=== PATIENT | male | born 1960 | race Caucasian/White ===

== ENCOUNTER 2019-08-23 18:25 | IRF | payer MEDICARE, SELFPAY ==
--- NOTE | 2019-08-23 18:53 | ADMGEN ---
This patient, Lam Merida, was admitted to [facility] Room 226-01. Patient/family oriented to hospital policies and general routines including ID bracelet, bed and alarms, visiting hours, pain management, procedures, bathroom and other care routines, personal items, smoking policy, room service/diet, and visiting hours. Valuables list has been completed. Information on how to activate the Rapid Response Team has been discussed. Patient/Family are encouraged to report perceived risks to care and to ask questions if they do not understand what they are told or what they should do.
[2019-08-23 20:00] VITALS: BMI 28.2
[2019-08-23 22:00] VITALS: BP 146/66; PULSE 77; RESP 18; TEMP 36.8; O2SAT 97
[2019-08-23 22:31] LABS: Glucose Point of Care 147 (65-105)
[2019-08-24 03:04] LABS: Glucose Point of Care 260 (65-105)
[2019-08-24 05:10] LABS: Basophils Percent Auto 0.5 % (0.2-1.2); Eosinophils Absolute Auto 0.1 K/mm3 (0-0.3); Hematocrit 31.2 % (42.0-52.0); Hemoglobin 10.5 g/dL (14.0-18.0); Immature Granulocyte Absolute 0.02 K/mm3 (0.00-0.031); Immature Granulocyte Percent A 0.5 % (0-0.5); Lymphocytes Absolute Auto 0.54 K/mm3 (0.9-3.2); Lymphocytes Percent Auto 12.3 % (18.3-44.2); Mean Corpuscular HGB Conc 33.7 g/dl (32-36); Mean Corpuscular Hemoglobin 29.8 pg (26-34); Mean Corpuscular Volume 88.6 fl (80-100); Mean Platelet Volume 10.2 fl (7.4-10.4); Monocytes Absolute Auto 0.3 K/mm3 (0.1-0.6); Monocytes Percent Auto 7.7 % (2.6-8.5); Neutrophils Absolute Auto 3.4 K/mm3 (1.3-6.7); Platelet Count Result 190 k/mm3 (150-375); Red Blood Count 3.52 M/mm3 (4.6-6.20); Red Cell Distribution Width 13.5 % (11.5-14.5); White Blood Count 4.4 K/mm3 (4.5-10.0)
[2019-08-24 05:26] LABS: Blood Urea Nitrogen 39 mg/dL (9-20); Calcium 8.5 mg/dL (8.4-10.2); Carbon Dioxide 27 mmol/L (22-30); Chloride 93 mmol/L (98-107); Estimated CRCL calculation 40 ml/min; Estimated Glomerular Filt Rate 37; Glucose 366 mg/dL (75-110); Potassium 4.3 mmol/L (3.4-5.0); Sodium 129 mmol/L (137-145)
[2019-08-24 06:00] VITALS: BP 107/49; PULSE 88; RESP 17; TEMP 36.6; O2SAT 97
[2019-08-24 06:49] LABS: Glucose Point of Care 393 (65-105)
[2019-08-24 07:17] LABS: Hemoglobin A1C 6.1 % (<5.7)
[2019-08-24] MEDS: INSULIN ASPART (*BKC) 100 UNITS/ML SUB-Q ×3 (07:50→18:01)
[2019-08-24] MEDS: INSULIN ASPART (*BKC) 100 UNITS/ML 10 UNITS SUB-Q ×3 (07:50→18:01)
[2019-08-24] MEDS: ATORVASTATIN 40 MG TABLET PO (07:51)
[2019-08-24] MEDS: ASPIRIN 81 MG CHEWABLE TABLET PO (07:51)
[2019-08-24] MEDS: GABAPENTIN 300 MG CAPSULE PO ×3 (07:52→17:55)
[2019-08-24] MEDS: THERAPEUTIC MULTIVITAMINS/MINERALS TAB (*BKC) 1 TABLET PO (07:52)
[2019-08-24] MEDS: LOSARTAN POTASSIUM 25 MG TABLET PO (07:52)
[2019-08-24] MEDS: FUROSEMIDE 20 MG TABLET PO (07:52)
[2019-08-24] MEDS: PRASUGREL HCL 10 MG TABLET PO (07:53)
[2019-08-24] MEDS: INSULIN GLARGINE (*BKC) 100 UNITS/ML 14 UNITS SUB-Q ×2 (07:57→17:59)
--- NOTE | 2019-08-24 11:42 | PCSTNOTE ---
Please refer to the Bedside Swallow Evaluation in the EMR.
--- NOTE | 2019-08-24 12:15 | WPDREHABHP ---
H&P: HPI History of Present Illness Chief complaint: spondylolisthesis lumbar region Narrative: Lam Merida is a 59 year old maleHISTORY OF PRESENT ILLNESS: The patient's primary rehab impairment category is neurological condition The etiologic diagnosis is spondylolisthesis of lumbar region I saw this patient [id number] on August 24, 2027 12 p.m. The patient is a 59-year-old right-handed white gentleman with a prior medical history of diabetes mellitus with significant neuropathy and L5-S1 spondylolisthesis along with lumbar radiculopathy of the lumbar region who presented to [facility] and July 18, 2019 for planned to phase spinal fusion with instrumentation. He underwent the phase 1 retroperitoneal anterior lumbar interbody fusion L4-5 and L5-S1 with diskectomy and spinal hardware implantation and July 18, [address] leung, neurosurgeon and with vascular surgeon. On July 20, 2019 he underwent a Face to segmental pedicle screw fixation from L4-S1 and posterior arthrodesis are with the patient's own harvested autograft from L4 through S1. He was transferred to ICU on July 21, 2019 due to increased oxygen requirement up to 5 liter per nasal cannula, hyperglycemia acute blood-loss anemia. Chest x-ray showed pulmonary edema. He received 2 units of packed RBCs for hemoglobin of 6.4, he required oxygen and BiPAP and endocrinology was consulted for hyperglycemia. The patient has an insulin pump but not enough supplies to lasted during his hospitalization so Endocrinology turned his pump off and switch him to basal bolus and changed his regimen to Humalog sliding scale before meals and every night. He will Pearson 6 units with meals and Lantus 24 units every morning. Cardiology was consulted for a postoperative elevated troponin. Echocardiogram was concerning for apical wall motion abnormalities consistent with possible stress cardiomyopathy. He was given 40 milligram of IV Lasix b.i.d. for pulmonary edema and volume overload and metoprolol 25 milligram b.i.d. was initiated. Cardiology wanted to start him on heparin drips but given his recent surgery Neurosurgery would not approve initially. He was placed on heparin drip on July 22 and it was. On July 31. He was ultimately diagnosed with a non ST elevation PR acute diastolic heart failure with preserved ejection fraction. TTE showed akinetic anteroseptal, apical and anterior thomas with E/E reversible likely preceded by 7 liters net positive fluid balance and repeat surgeries. Left heart catheterization found multivessel disease and he was transferred to Cardiology for management. He underwent a PCI and August 07, [address] Agee. Subsequent TTE with ejection fraction of 55 to 60% and hypokinesis septal and apical thomas. He is currently on aspirin Plavix and atorvastatin. During this hospitalization the patient was intubated 4 times any failed modified barium swallow on August 08, 2020 NGT was removed on August 15, 2019 and the PEG tube was placed August 15, [address] chandrika lara. Tube feeding will started on August 16, 2019 and he is at goal. Acute kidney injury has resolved hypernatremia has resolved and was presented or presumed to be a result of inability to take oral nutrition. Hemoglobin is stable at 10.9 he is awake and alert oriented x4 he is on room air he will be discharged to rehab on Lovenox 30 milligram subcu daily for DVT prophylaxis however he was not discharged from [facility] on Lovenox and we will put him on SCD and Shashi hose for DVT prophylaxis Therapy was initiated at the acute care facility and the patient transferred to us from [facility] on August 23 October 05, 2019 FALLS OR SURGERIES: The patient has had major surgeries in the 100 days prior to admission. They had no falls in the past year. They had falls with injury in the past year. PAST MEDICAL HISTORY: arthritis, cataract, consti
[2019-08-24 12:27] LABS: Glucose Point of Care 332 (65-105)
[2019-08-24] MEDS: MUPIROCIN 2% OINT 22 GM TUBE 1 APPLIC TOPICAL ×2 (12:41→17:57)
[2019-08-24 13:25] VITALS: BMI 28.2
[2019-08-24 14:00] VITALS: BP 116/58; PULSE 86; RESP 18; TEMP 36.6; O2SAT 98
[2019-08-24 18:11] LABS: Glucose Point of Care 271 (65-105)
[2019-08-24 20:24] VITALS: PULSE 86
[2019-08-24] MEDS: METOPROLOL TARTRATE 12.5 MG TABLET PO (20:24)
[2019-08-24 20:50] LABS: Glucose Point of Care 278 (65-105)
[2019-08-24] MEDS: BISACODYL 10 MG SUPPOSITORY RECTAL (21:38)
[2019-08-24 22:00] VITALS: BP 160/63; PULSE 88; RESP 19; TEMP 36.9; O2SAT 94
[2019-08-24] MEDS: MELATONIN 3 MG TABLET 6 MG PO (23:00)
[2019-08-25] VITALS (7 sets, daily range): BP systolic 99–160; BP diastolic 49–74; PULSE 76–90; RESP 18–19; TEMP 36.2–37.4; O2SAT 94–99
[2019-08-25 06:59] LABS: Glucose Point of Care 370 (65-105)
[2019-08-25] MEDS: INSULIN ASPART (*BKC) 100 UNITS/ML SUB-Q ×3 (07:33→17:48)
[2019-08-25] MEDS: INSULIN ASPART (*BKC) 100 UNITS/ML 10 UNITS SUB-Q ×3 (07:34→17:48)
[2019-08-25] MEDS: ASPIRIN 81 MG CHEWABLE TABLET PO (09:07)
[2019-08-25] MEDS: METOPROLOL TARTRATE 12.5 MG TABLET PO ×2 (09:07→21:46)
[2019-08-25] MEDS: ATORVASTATIN 40 MG TABLET PO (09:07)
[2019-08-25] MEDS: FUROSEMIDE 20 MG TABLET PO (09:08)
[2019-08-25] MEDS: LOSARTAN POTASSIUM 25 MG TABLET PO (09:08)
[2019-08-25] MEDS: THERAPEUTIC MULTIVITAMINS/MINERALS TAB (*BKC) 1 TABLET PO (09:08)
[2019-08-25] MEDS: GABAPENTIN 300 MG CAPSULE PO ×3 (09:08→17:44)
[2019-08-25] MEDS: DOCUSATE SODIUM LIQ 100 MG/10 ML UDC 50 MG PO (09:09)
[2019-08-25] MEDS: PRASUGREL HCL 10 MG TABLET PO (09:11)
[2019-08-25] MEDS: MUPIROCIN 2% OINT 22 GM TUBE 1 APPLIC TOPICAL ×2 (09:11→17:48)
[2019-08-25] MEDS: INSULIN GLARGINE (*BKC) 100 UNITS/ML 14 UNITS SUB-Q ×2 (09:14→17:47)
[2019-08-25 12:46] LABS: Glucose Point of Care 228 (65-105)
--- NOTE | 2019-08-25 15:08 | WPDNEURORHBP ---
Subjective Date/time seen: 08/25/19 15:08 Interval history: patient is doing well and comfortable does not complain of any headache nausea vomiting chest pain or shortness of breath his neurological status is slowly improving and he is happy with the care he is receiving Review of Systems Review of Systems: All systems reviewed & are unremarkable except as noted in HPI and below Functional Status Transfers Ability Ability to Transfer In/Out of Chair: Moderate Assistance X 2 Exam Const: General: comfortable and no acute distress Eyes: General: appearance normal, both eyes and all related structures Other: slightly decreased visual acuity and evidence of diabetic return retinopathy bilateral Neck: Neck: supple and no JVD Resp: Effort & Inspection: normal respiratory effort Auscultation: clear to auscultation bilaterally Cardio: Rate: regular rate Rhythm: regular rhythm GI: GI Palp: Yes soft Auscultation: normal bowel sounds Skin: General skin exam: normal color and no rashes or lesions noted Neuro: Other: neurological status is improving comparing to my previous exam he is quite happy with the care he is receiving Extrem: Other: evidence of atrophy of the small muscles of the hand left more so than the right hand it obvious Objective Data Vital Signs Vital Signs: Vital Signs - 24 hr 08/24/19 20:24 08/24/19 22:00 08/25/19 06:00 Temperature 36.9 C 37.4 C Pulse Rate 86 88 76 Respiratory Rate 19 19 Blood Pressure 160/63 H 139/49 L Pulse Oximetry 94 94 08/25/19 08:00 08/25/19 09:07 08/25/19 09:30 Temperature Pulse Rate 76 76 Respiratory Rate 19 Blood Pressure 99/49 L Pulse Oximetry 94 Intake/Output Intake/Output: Intake & Output 08/22/19 08/23/19 08/24/19 08/25/19 23:59 23:59 23:59 23:59 Intake Total 960 480 Balance 960 480 Meds/Results Medications: Active Medications Generic Name Dose Route Start Last Admin Trade Name Freq PRN Reason Stop Dose Admin Aspirin 81 mg 08/24/19 09:00 08/25/19 09:07 Aspirin Chewable PO 81 mg DAILY CARLOS Administration Atorvastatin Calcium 40 mg 08/24/19 09:00 08/25/19 09:07 Lipitor PO 40 mg DAILY CARLOS Administration Bisacodyl 10 mg 08/23/19 21:24 08/24/19 21:38 Dulcolax Suppository RECTAL 10 mg DAILY PRN Administration Constipation Dextrose 12.5 gm 08/23/19 21:20 Dextrose 50% Syringe IV PUSH PRN PRN Hypoglycemia Protocol Docusate Sodium 50 mg 08/25/19 09:00 08/25/19 09:09 Docusate Sodium Liq PO 50 mg Q48H CARLOS Administration Furosemide 20 mg 08/24/19 09:00 08/25/19 09:08 Lasix Tablet PO 20 mg DAILY CARLOS Administration Gabapentin 300 mg 08/24/19 09:00 08/25/19 13:05 Neurontin PO 300 mg TID CARLOS Administration Glucagon 1 mg 08/23/19 21:20 Glucagon For Inj IM PRN PRN Hypoglycemia Protocol Glucose 15 gm 08/23/19 21:20 Glutose 15 PO PRN PRN Hypoglycemia Protocol Guaifenesin 200 mg 08/23/19 21:24 Guaifenesin Liq PO Q4H PRN Cough Dextrose 1,000 mls @ 100 mls/hr 08/23/19 21:20 Dextrose 5% 1,000 Ml IVPB PRN PRN Hypoglycemia Protocol Insulin Aspart 3 - 6 units 08/24/19 08:00 08/25/19 13:03 Novolog SUB-Q 3 units TIDWM CARLOS Administration Protocol Insulin Aspart 10 units 08/24/19 08:00 08/25/19 13:04 Novolog SUB-Q 10 units TIDWM CARLOS Administration Insulin Glargine 14 units 08/24/19 09:00 08/25/19 09:14 Lantus SUB-Q 14 units BID CARLOS Administration Losartan Potassium 25 mg 08/24/19 09:00 08/25/19 09:08 Cozaar PO 25 mg DAILY CARLOS Administration Melatonin 6 mg 08/25/19 21:00 Melatonin PO HS CARLOS Metoprolol Tartrate 12.5 mg 08/24/19 09:00 08/25/19 09:07 Lopressor PO 12.5 mg Q12HR CARLOS Administration Miconazole Nitrate 1 applic 08/24/19 12:20 08/25/19 09:11 Aloe [place] TOPICAL 1 applic Q1
--- NOTE | 2019-08-25 15:33 | RPD ---
INDIVIDUALIZED PLAN OF CARE FOR Lam Merida Brief Synthesis of Pre-Admission Screen, Post-Admission Evaluation and Therapy Evaluations: The patient presents to rehab with spondylolisthesis of lumbar region. Comorbidities include diabetes mellitus, acute kidney injury, metabolic acidosis, hyperglycemia, peripheral neuropathy, depression, hyperlipidemia, hyponatremia, arthritis, cataracts, constipation, NSTEMI, congestive heart failure, acute respiratory failure, hypernatremia, anemia, dysuria, dystrophia unguium, diabetic retinopathy, urinary urgency. The patient requires physician services for medical oversight, management of post-op complications in setting of present comorbidities, and pain management. The patient requires nursing services for anticoagulation therapy, diabetes training, DVT prophylactics, infection protection, medication management and education, pressure relief, and wound care. Deficits include:ADLs, Balance, Endurance, Family Training/Education, Mobility, Pain Management, ROM, Safety, Strength,Transfers Yarn Worker/Case Management for: Discharge Planning and Patient/Family Counseling Physical Therapy: 5 days per week for 90 minutes. Treatments may include: Therapeutic Exercise, Gait Training, Neuromuscular Re-education, Transfer Training, Community Reintegration, Bed Mobility, Patient/Family Education, Wheelchair Mobility Group Therapy/Concurrent Therapy Rationales: -Improve attention span during functional activities in a distracted environment. -Enhance problem solving and/or adequate judgment skills during functional activities in a distracted environment. -Promote increased safety awareness in a distracted environment to reduce fall risk with functional tasks, transfers, and ambulation to allow a more safe, self-sufficient return to the home environment. -Improve dynamic balance skills to promote safety and independence with functional activities in a distracted environment for maximum gain. Occupational Therapy: 5 days per week for 90 minutes. Treatments may include: Therapeutic Exercise, Therapeutic Activity, Cognitive Training, Self-Care Transfer Training, Community Reintegration, Home Management, Patient/Family Education, Wheelchair Mobility Training, Energy Conservation Training Group Therapy/Concurrent Therapy Rationales: -Allow therapist to observe and teach generalization and carry-over of skills learned in individual therapy. -Enhance problem solving and sequencing skills during therapeutic activities in a distracted environment. -Promote increased safety awareness in a realistic setting to reduce fall risk with functional tasks due to visual and verbal distractions. -Increase functional level with ADLs, ADL transfers and use of adaptive equipment through therapeutic activities with others while promoting safety to allow a more safe, self-sufficient return home. Medical Prognosis: Good Anticipated Length of Stay: 14-21 days Rehab Goals: Eating Goal: 05-Setup or Clean Up Assistance Oral Hygiene Goal: 05-Setup or Clean Up Assistance Toileting Hygiene Goal: 04-Supervision or Touching Assistance Shower/Bathe Self Goal: 03-Partial/Moderate Assistance Upper Body Dressing Goal: 03-Partial/Moderate Assistance Lower Body Dressing Goal: 04-Supervision or Touching Assistance Putting On/Taking Off Footwear Goal: 04-Supervision or Touching Assistance Rolling Left and Right Goal: 06-Independent Sit to Lying Goal: 06-Independent Lying to Sitting on Side of Bed Goal: 06-Independent Sit to Stand Goal: 06-Independent Chair/Dgb-eh-Rwypt Transfer Goal: 06-Independent Toilet Transfer Goal: 06-Independent Car Transfer Goal: 06-Independent Walk 10' Goal: 06-Independent Walk 50' with Two Turns Goal: 06-Independent Walk 150' Goal: 06-Independent Walk 10' on Uneven Surface Goal: 06-Independent 1 Step (Curb) Goal: 04-Supervision or Touching Assistance 4 Steps Goal: 04-Supervision or Touching Assistance 12 Steps Goal Score: 04-S
[2019-08-25 17:26] LABS: Glucose Point of Care 208 (65-105)
[2019-08-25] MEDS: MELATONIN 3 MG TABLET 6 MG PO (21:45)
[2019-08-25 22:17] LABS: Glucose Point of Care 294 (65-105)
[2019-08-26 06:00] VITALS: BP 151/73; PULSE 73; RESP 16; TEMP 36.3; O2SAT 97
[2019-08-26 07:03] LABS: Glucose Point of Care 360 (65-105)
[2019-08-26] MEDS: FUROSEMIDE 20 MG TABLET PO (09:52)
[2019-08-26] MEDS: ASPIRIN 81 MG CHEWABLE TABLET PO (09:52)
[2019-08-26] MEDS: ATORVASTATIN 40 MG TABLET PO (09:52)
[2019-08-26] MEDS: GABAPENTIN 300 MG CAPSULE PO ×3 (09:52→17:53)
[2019-08-26] MEDS: LOSARTAN POTASSIUM 25 MG TABLET PO (09:53)
[2019-08-26] MEDS: INSULIN GLARGINE (*BKC) 100 UNITS/ML 14 UNITS SUB-Q ×2 (10:07→18:05)
[2019-08-26] MEDS: INSULIN ASPART (*BKC) 100 UNITS/ML 10 UNITS SUB-Q ×3 (10:08→17:54)
[2019-08-26] MEDS: INSULIN ASPART (*BKC) 100 UNITS/ML SUB-Q ×2 (10:08→12:45)
[2019-08-26 10:11] VITALS: PULSE 73
[2019-08-26] MEDS: METOPROLOL TARTRATE 12.5 MG TABLET PO ×2 (10:11→20:21)
[2019-08-26] MEDS: PRASUGREL HCL 10 MG TABLET PO (10:12)
[2019-08-26] MEDS: THERAPEUTIC MULTIVITAMINS/MINERALS TAB (*BKC) 1 TABLET PO (10:12)
[2019-08-26] MEDS: MUPIROCIN 2% OINT 22 GM TUBE 1 APPLIC TOPICAL ×2 (10:21→18:03)
[2019-08-26 12:16] LABS: Glucose Point of Care 303 (65-105)
--- NOTE | 2019-08-26 13:06 | WPDNEURORHBP ---
Subjective Date/time seen: 08/26/19 13:06 Interval history: the therapist complains of postural hypotension which makes it little harder for them to work with him this postural hypotension is most likely related to combination of his underlying peripheral neuropathy and also extensive lower back surgery compromising the peripheral nervous system in the lower extremities much more so than the upper extremities I will add ProAmatine starting with the lower dose to see what his response is Review of Systems Review of Systems: All systems reviewed & are unremarkable except as noted in HPI and below Constitutional: Comments: postural hypertension as mentioned in my initial part Functional Status Transfers Ability Ability to Transfer In/Out of Chair: Moderate Assistance X 2 Exam Const: General: comfortable and no acute distress HENMT: Other: normal Eyes: General: appearance normal, both eyes and all related structures Neck: Neck: supple and no JVD Resp: Effort & Inspection: normal respiratory effort Auscultation: clear to auscultation bilaterally Cardio: Rate: regular rate Rhythm: regular rhythm GI: GI Palp: Yes soft Auscultation: normal bowel sounds Skin: General skin exam: normal color Neuro: Other: significant weakness of the left upper extremity which is 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 he does have postural hypotension documented by the physical therapist and the nursing when he sits or stand Patient also has generalized weakness particularly of the lower extremities with depressed reflexes sensory deficit positive Romberg and needing assistance all the activities of daily living Extrem: Other: atrophy of bilateral hands left more so than the right and weakness of the left upper extremity related to Angela encephalitis Objective Data Vital Signs Vital Signs: Vital Signs - 24 hr 08/25/19 15:41 08/25/19 21:46 08/25/19 22:00 Temperature 36.2 C L 36.8 C Pulse Rate 86 90 90 Respiratory Rate 18 18 Blood Pressure 108/58 L 160/74 H Pulse Oximetry 96 99 08/26/19 06:00 08/26/19 10:11 Temperature 36.3 C L Pulse Rate 73 73 Respiratory Rate 16 Blood Pressure 151/73 H Pulse Oximetry 97 Intake/Output Intake/Output: Intake & Output 08/23/19 08/24/19 08/25/19 08/26/19 23:59 23:59 23:59 23:59 Intake Total 960 720 240 Balance 960 720 240 Meds/Results Medications: Active Medications Generic Name Dose Route Start Last Admin Trade Name Freq PRN Reason Stop Dose Admin Aspirin 81 mg 08/24/19 09:00 08/26/19 09:52 Aspirin Chewable PO 81 mg DAILY CARLOS Administration Atorvastatin Calcium 40 mg 08/24/19 09:00 08/26/19 09:52 Lipitor PO 40 mg DAILY CARLOS Administration Bisacodyl 10 mg 08/23/19 21:24 08/24/19 21:38 Dulcolax Suppository RECTAL 10 mg DAILY PRN Administration Constipation Dextrose 12.5 gm 08/23/19 21:20 Dextrose 50% Syringe IV PUSH PRN PRN Hypoglycemia Protocol Docusate Sodium 50 mg 08/25/19 09:00 08/25/19 09:09 Docusate Sodium Liq PO 50 mg Q48H CARLOS Administration Furosemide 20 mg 08/24/19 09:00 08/26/19 09:52 Lasix Tablet PO 20 mg DAILY CARLOS Administration Gabapentin 300 mg 08/24/19 09:00 08/26/19 09:52 Neurontin PO 300 mg TID CARLOS Administration Glucagon 1 mg 08/23/19 21:20 Glucagon For Inj IM PRN PRN Hypoglycemia Protocol Glucose 15 gm 08/23/19 21:20 Glutose 15 PO PRN PRN Hypoglycemia Protocol Guaifenesin 200 mg 08/23/19 21:24 Guaifenesin Liq PO Q4H PRN Cough Dextrose 1,000 mls @ 100 mls/hr 08/23/19 21:20 Dextrose 5% 1,000 Ml IVPB PRN PRN Hypoglycemia Protocol Insulin Aspart 3 - 6 units 08/24/19 08:00 08/26/19 12:45 Novolog SUB-Q 5 units TIDWM CARLOS Administration Protocol Insulin Aspart 10 units 08/24/19 08:00 08/26/19 12:45 Novolog S
[2019-08-26 14:00] VITALS: BP 115/58; PULSE 76; RESP 18; TEMP 36.8; O2SAT 99
[2019-08-26 16:40] LABS: Glucose Point of Care 177 (65-105)
[2019-08-26] MEDS: MIDODRINE HCL 2.5 MG TABLET PO (17:55)
[2019-08-26 20:21] VITALS: PULSE 84
[2019-08-26] MEDS: MELATONIN 3 MG TABLET 6 MG PO (20:24)
[2019-08-26 21:20] LABS: Glucose Point of Care 268 (65-105)
[2019-08-26 22:00] VITALS: BP 149/63; PULSE 87; RESP 19; TEMP 37.2; O2SAT 97
[2019-08-27 06:00] VITALS: BP 141/68; PULSE 76; RESP 18; TEMP 36.6; O2SAT 97
[2019-08-27 06:22] LABS: Glucose Point of Care 223 (65-105)
[2019-08-27] MEDS: INSULIN ASPART (*BKC) 100 UNITS/ML SUB-Q ×2 (09:45→13:22)
[2019-08-27] MEDS: INSULIN ASPART (*BKC) 100 UNITS/ML 10 UNITS SUB-Q ×3 (09:45→18:31)
[2019-08-27] MEDS: GABAPENTIN 300 MG CAPSULE PO ×3 (09:47→18:30)
[2019-08-27] MEDS: ATORVASTATIN 40 MG TABLET PO (09:47)
[2019-08-27] MEDS: FUROSEMIDE 20 MG TABLET PO (09:47)
[2019-08-27] MEDS: ASPIRIN 81 MG CHEWABLE TABLET PO (09:47)
[2019-08-27] MEDS: LOSARTAN POTASSIUM 25 MG TABLET PO (09:48)
[2019-08-27] MEDS: INSULIN GLARGINE (*BKC) 100 UNITS/ML 14 UNITS SUB-Q ×2 (09:48→18:35)
[2019-08-27] MEDS: MUPIROCIN 2% OINT 22 GM TUBE 1 APPLIC TOPICAL ×2 (09:49→18:31)
[2019-08-27] MEDS: MIDODRINE HCL 2.5 MG TABLET PO ×3 (09:49→18:31)
[2019-08-27] MEDS: PRASUGREL HCL 10 MG TABLET PO (09:49)
[2019-08-27] MEDS: THERAPEUTIC MULTIVITAMINS/MINERALS TAB (*BKC) 1 TABLET PO (09:49)
[2019-08-27 09:53] VITALS: PULSE 92
[2019-08-27] MEDS: METOPROLOL TARTRATE 12.5 MG TABLET PO ×2 (09:53→20:39)
[2019-08-27 12:24] LABS: Glucose Point of Care 379 (65-105)
[2019-08-27 14:00] VITALS: BP 154/68; PULSE 77; RESP 16; TEMP 36.6; O2SAT 98
[2019-08-27 17:36] LABS: Glucose Point of Care 175 (65-105)
--- NOTE | 2019-08-27 18:27 | WPDNEURORHBP ---
Subjective Date/time seen: 08/27/19 18:27 Interval history: patient continues to show signs of lower extremity weakness much more so than the upper extremities although he has improved some, he needed the explanation why is a like that and I explained him to the best of my efforts He denies any headache nausea vomiting chest pain or shortness of breath Review of Systems Review of Systems: All systems reviewed & are unremarkable except as noted in HPI and below Functional Status Transfers Ability Ability to Transfer In/Out of Chair: Moderate Assistance X 2 Exam Const: General: comfortable and no acute distress Eyes: General: appearance normal, both eyes and all related structures Other: does have evidence of the diabetic retinopathy and the previous history of vitrectomy on the left side Neck: Neck: supple and no JVD Resp: Effort & Inspection: normal respiratory effort Auscultation: clear to auscultation bilaterally Cardio: Rate: regular rate Rhythm: regular rhythm GI: GI Palp: Yes soft Auscultation: normal bowel sounds Skin: General skin exam: normal color and no rashes or lesions noted Neuro: Other: significant lower extremity weakness more so than the upper extremity and the evidence of left upper extremity weakness of long-standing duration as mentioned in my initial H and P Extrem: Other: loss of muscle bulk in the ulnar innervated area left more so than the right Psych: Mental Status: mental status grossly normal Objective Data Vital Signs Vital Signs: Vital Signs - 24 hr 08/26/19 20:21 08/26/19 22:00 08/27/19 06:00 Temperature 37.2 C 36.6 C Pulse Rate 84 87 76 Respiratory Rate 19 18 Blood Pressure 149/63 H 141/68 H Pulse Oximetry 97 97 08/27/19 09:53 08/27/19 14:00 Temperature 36.6 C Pulse Rate 92 77 Respiratory Rate 16 Blood Pressure 154/68 H Pulse Oximetry 98 Intake/Output Intake/Output: Intake & Output 08/24/19 08/25/19 08/26/19 08/27/19 23:59 23:59 23:59 23:59 Intake Total 960 720 720 480 Balance 960 720 720 480 Meds/Results Medications: Active Medications Generic Name Dose Route Start Last Admin Trade Name Freq PRN Reason Stop Dose Admin Aspirin 81 mg 08/24/19 09:00 08/27/19 09:47 Aspirin Chewable PO 81 mg DAILY CARLOS Administration Atorvastatin Calcium 40 mg 08/24/19 09:00 08/27/19 09:47 Lipitor PO 40 mg DAILY CARLOS Administration Bisacodyl 10 mg 08/23/19 21:24 08/24/19 21:38 Dulcolax Suppository RECTAL 10 mg DAILY PRN Administration Constipation Dextrose 12.5 gm 08/23/19 21:20 Dextrose 50% Syringe IV PUSH PRN PRN Hypoglycemia Protocol Docusate Sodium 100 mg 08/27/19 21:00 Colace Cap PO Q12HR CARLOS Furosemide 20 mg 08/24/19 09:00 08/27/19 09:47 Lasix Tablet PO 20 mg DAILY CARLOS Administration Gabapentin 300 mg 08/24/19 09:00 08/27/19 13:19 Neurontin PO 300 mg TID CARLOS Administration Glucagon 1 mg 08/23/19 21:20 Glucagon For Inj IM PRN PRN Hypoglycemia Protocol Glucose 15 gm 08/23/19 21:20 Glutose 15 PO PRN PRN Hypoglycemia Protocol Guaifenesin 200 mg 08/23/19 21:24 Guaifenesin Liq PO Q4H PRN Cough Dextrose 1,000 mls @ 100 mls/hr 08/23/19 21:20 Dextrose 5% 1,000 Ml IVPB PRN PRN Hypoglycemia Protocol Insulin Aspart 3 - 6 units 08/24/19 08:00 08/27/19 13:22 Novolog SUB-Q 6 units TIDWM CARLOS Administration Protocol Insulin Aspart 10 units 08/24/19 08:00 08/27/19 13:20 Novolog SUB-Q 10 units TIDWM CARLOS Administration Insulin Glargine 14 units 08/24/19 09:00 08/27/19 09:48 Lantus SUB-Q 14 units BID CARLOS Administration Losartan Potassium 25 mg 08/24/19 09:00 08/27/19 09:48 Cozaar PO 25 mg DAILY CARLOS Administration Melatonin 6 mg 08/25/19 21:00 08/26/19 20:24 Melatonin PO 6 mg HS CARLOS Administration Metoprolol Tartrate 12.5
[2019-08-27 20:39] VITALS: PULSE 82
[2019-08-27] MEDS: MELATONIN 3 MG TABLET 6 MG PO (20:39)
[2019-08-27] MEDS: DOCUSATE SODIUM 100 MG CAPSULE PO (20:40)
[2019-08-27 21:02] LABS: Glucose Point of Care 181 (65-105)
[2019-08-27 21:24] VITALS: BP 141/62; PULSE 82; RESP 20; TEMP 36.8; O2SAT 96
[2019-08-28 06:00] VITALS: BP 123/64; PULSE 78; RESP 20; TEMP 36.8; O2SAT 98
[2019-08-28 06:31] LABS: Glucose Point of Care 181 (65-105)
[2019-08-28] MEDS: INSULIN ASPART (*BKC) 100 UNITS/ML 10 UNITS SUB-Q ×3 (09:10→18:25)
[2019-08-28] MEDS: DOCUSATE SODIUM 100 MG CAPSULE PO ×2 (09:11→20:42)
[2019-08-28] MEDS: ATORVASTATIN 40 MG TABLET PO (09:11)
[2019-08-28] MEDS: ASPIRIN 81 MG CHEWABLE TABLET PO (09:11)
[2019-08-28 09:12] VITALS: PULSE 78
[2019-08-28] MEDS: FUROSEMIDE 20 MG TABLET PO (09:12)
[2019-08-28] MEDS: GABAPENTIN 300 MG CAPSULE PO ×3 (09:12→18:27)
[2019-08-28] MEDS: MIDODRINE HCL 2.5 MG TABLET PO ×3 (09:12→18:27)
[2019-08-28] MEDS: LOSARTAN POTASSIUM 25 MG TABLET PO (09:12)
[2019-08-28] MEDS: METOPROLOL TARTRATE 12.5 MG TABLET PO ×2 (09:12→20:41)
[2019-08-28] MEDS: THERAPEUTIC MULTIVITAMINS/MINERALS TAB (*BKC) 1 TABLET PO (09:13)
[2019-08-28] MEDS: PRASUGREL HCL 10 MG TABLET PO (09:13)
[2019-08-28] MEDS: MUPIROCIN 2% OINT 22 GM TUBE 1 APPLIC TOPICAL ×2 (09:13→18:27)
[2019-08-28] MEDS: INSULIN GLARGINE (*BKC) 100 UNITS/ML 14 UNITS SUB-Q ×2 (09:15→18:28)
[2019-08-28 12:04] LABS: Glucose Point of Care 182 (65-105)
[2019-08-28 14:00] VITALS: BP 112/57; PULSE 77; RESP 18; TEMP 36.7; O2SAT 94
[2019-08-28] MEDS: SIMETHICONE 80 MG TAB.CHEW PO (16:01)
[2019-08-28 17:01] LABS: Glucose Point of Care 234 (65-105)
[2019-08-28] MEDS: INSULIN ASPART (*BKC) 100 UNITS/ML SUB-Q (18:26)
[2019-08-28 20:41] VITALS: PULSE 80
[2019-08-28] MEDS: MELATONIN 3 MG TABLET 6 MG PO (20:41)
[2019-08-28 21:13] LABS: Glucose Point of Care 247 (65-105)
[2019-08-28 22:00] VITALS: BP 170/69; PULSE 83; RESP 19; TEMP 37.1; O2SAT 100
[2019-08-29 06:00] VITALS: BP 134/64; PULSE 77; RESP 19; TEMP 36.7; O2SAT 95
[2019-08-29 06:59] LABS: Glucose Point of Care 296 (65-105)
[2019-08-29] MEDS: INSULIN ASPART (*BKC) 100 UNITS/ML SUB-Q ×2 (08:37→12:01)
[2019-08-29] MEDS: MUPIROCIN 2% OINT 22 GM TUBE 1 APPLIC TOPICAL ×2 (08:38→17:41)
[2019-08-29] MEDS: INSULIN ASPART (*BKC) 100 UNITS/ML 10 UNITS SUB-Q ×3 (08:38→17:50)
[2019-08-29] MEDS: FUROSEMIDE 20 MG TABLET PO (08:39)
[2019-08-29] MEDS: DOCUSATE SODIUM 100 MG CAPSULE PO ×2 (08:39→20:07)
[2019-08-29] MEDS: ASPIRIN 81 MG CHEWABLE TABLET PO (08:39)
[2019-08-29] MEDS: ATORVASTATIN 40 MG TABLET PO (08:39)
[2019-08-29] MEDS: GABAPENTIN 300 MG CAPSULE PO ×3 (08:39→17:41)
[2019-08-29] MEDS: INSULIN GLARGINE (*BKC) 100 UNITS/ML 14 UNITS SUB-Q ×2 (08:39→17:40)
[2019-08-29 08:40] VITALS: PULSE 77
[2019-08-29] MEDS: LOSARTAN POTASSIUM 25 MG TABLET PO (08:40)
[2019-08-29] MEDS: METOPROLOL TARTRATE 12.5 MG TABLET PO ×2 (08:40→20:07)
[2019-08-29] MEDS: PRASUGREL HCL 10 MG TABLET PO (08:41)
[2019-08-29] MEDS: MIDODRINE HCL 2.5 MG TABLET PO ×3 (08:41→17:41)
[2019-08-29] MEDS: THERAPEUTIC MULTIVITAMINS/MINERALS TAB (*BKC) 1 TABLET PO (08:41)
[2019-08-29 11:38] LABS: Glucose Point of Care 214 (65-105)
[2019-08-29 14:00] VITALS: BP 102/56; PULSE 77; RESP 18; TEMP 36.7; O2SAT 97
[2019-08-29 17:02] LABS: Glucose Point of Care 111 (65-105)
--- NOTE | 2019-08-29 17:48 | WPDNEURORHBP ---
Subjective Date/time seen: 08/29/19 17:48 Interval history: patient is emotional about his clinical state although he is improving he was counseled during the team conference in the presence of the son, otherwise he do not have chest pain shortness of breath headache nausea vomiting fevers chills in fact he is improved Review of Systems Review of Systems: All systems reviewed & are unremarkable except as noted in HPI and below Functional Status Ambulation Ability Ability to Ambulate 10 Feet: Moderate Assistance X 1 Ambulation Assistive Devices: Walker, Wheeled Transfers Ability Ability to Transfer In/Out of Chair: Moderate Assistance X 2 Exam Const: General: comfortable and no acute distress Eyes: General: appearance normal, both eyes and all related structures Other: evidence of diabetic retinopathy and evidence of vitrectomy in the left side Neck: Neck: supple and no JVD Resp: Effort & Inspection: normal respiratory effort Auscultation: clear to auscultation bilaterally Cardio: Rate: regular rate Rhythm: regular rhythm GI: GI Palp: Yes Soft to palpation Auscultation: normal bowel sounds Skin: General skin exam: normal color and no rashes or lesions noted Neuro: Other: improving lower extremity weakness he walked about 9 or 10 feet twice which is significant improvement from the time he came to us Continues to have signs of combined diabetic neuropathy and paraparesis related to significant spondylolisthesis Extrem: Other: evidence of previous neurological insult to the left upper extremity wasting of the small muscles of the hand left more than the right Objective Data Vital Signs Vital Signs: Vital Signs - 24 hr 08/28/19 20:41 08/28/19 22:00 08/29/19 06:00 Temperature 37.1 C 36.7 C Pulse Rate 80 83 77 Respiratory Rate 19 19 Blood Pressure 170/69 H 134/64 Pulse Oximetry 100 95 08/29/19 08:40 08/29/19 14:00 Temperature 36.7 C Pulse Rate 77 77 Respiratory Rate 18 Blood Pressure 102/56 L Pulse Oximetry 97 Intake/Output Intake/Output: Intake & Output 08/26/19 08/27/19 08/28/19 08/29/19 23:59 23:59 23:59 23:59 Intake Total 690 590 0739 600 Balance 234 938 1943 600 Meds/Results Medications: Active Medications Generic Name Dose Route Start Last Admin Trade Name Freq PRN Reason Stop Dose Admin Aspirin 81 mg 08/24/19 09:00 08/29/19 08:39 Aspirin Chewable PO 81 mg DAILY CARLOS Administration Atorvastatin Calcium 40 mg 08/24/19 09:00 08/29/19 08:39 Lipitor PO 40 mg DAILY CARLOS Administration Bisacodyl 10 mg 08/23/19 21:24 08/24/19 21:38 Dulcolax Suppository RECTAL 10 mg DAILY PRN Administration Constipation Dextrose 12.5 gm 08/23/19 21:20 Dextrose 50% Syringe IV PUSH PRN PRN Hypoglycemia Protocol Docusate Sodium 100 mg 08/27/19 21:00 08/29/19 08:39 Colace Cap PO 100 mg Q12HR CARLOS Administration Furosemide 20 mg 08/24/19 09:00 08/29/19 08:39 Lasix Tablet PO 20 mg DAILY CARLOS Administration Gabapentin 300 mg 08/24/19 09:00 08/29/19 12:01 Neurontin PO 300 mg TID CARLOS Administration Glucagon 1 mg 08/23/19 21:20 Glucagon For Inj IM PRN PRN Hypoglycemia Protocol Glucose 15 gm 08/23/19 21:20 Glutose 15 PO PRN PRN Hypoglycemia Protocol Guaifenesin 200 mg 08/23/19 21:24 Guaifenesin Liq PO Q4H PRN Cough Dextrose 1,000 mls @ 100 mls/hr 08/23/19 21:20 Dextrose 5% 1,000 Ml IVPB PRN PRN Hypoglycemia Protocol Insulin Aspart 3 - 6 units 08/24/19 08:00 08/29/19 12:01 Novolog SUB-Q 3 units TIDWM CARLOS Administration Protocol Insulin Aspart 10 units 08/24/19 08:00 08/29/19 12:01 Novolog SUB-Q 10 units TIDWM CARLOS Administration Insulin Glargine 14 units 08/24/19 09:00 08/29/19 08:39 Lantus SUB-Q 14 units BID CARLOS Administration Losartan Potassium 25 mg 08/24/19 09:00 08/29/19 0
[2019-08-29 20:07] VITALS: PULSE 80
[2019-08-29] MEDS: MELATONIN 3 MG TABLET 6 MG PO (20:08)
[2019-08-29 20:49] LABS: Glucose Point of Care 204 (65-105)
[2019-08-29 22:00] VITALS: BP 156/71; PULSE 88; RESP 19; TEMP 36.9; O2SAT 99
[2019-08-29] MEDS: SIMETHICONE 80 MG TAB.CHEW PO (23:13)
[2019-08-30 06:00] VITALS: BP 141/52; PULSE 80; RESP 17; TEMP 36.8; O2SAT 96
[2019-08-30 06:53] LABS: Glucose Point of Care 235 (65-105)
[2019-08-30] MEDS: INSULIN ASPART (*BKC) 100 UNITS/ML 10 UNITS SUB-Q ×3 (09:02→18:14)
[2019-08-30] MEDS: INSULIN ASPART (*BKC) 100 UNITS/ML SUB-Q ×2 (09:03→12:49)
[2019-08-30] MEDS: INSULIN GLARGINE (*BKC) 100 UNITS/ML 14 UNITS SUB-Q ×2 (09:04→18:18)
[2019-08-30] MEDS: FUROSEMIDE 20 MG TABLET PO (09:07)
[2019-08-30] MEDS: ATORVASTATIN 40 MG TABLET PO (09:07)
[2019-08-30] MEDS: DOCUSATE SODIUM 100 MG CAPSULE PO ×2 (09:07→20:16)
[2019-08-30] MEDS: ASPIRIN 81 MG CHEWABLE TABLET PO (09:07)
[2019-08-30] MEDS: THERAPEUTIC MULTIVITAMINS/MINERALS TAB (*BKC) 1 TABLET PO (09:08)
[2019-08-30] MEDS: LOSARTAN POTASSIUM 25 MG TABLET PO (09:08)
[2019-08-30] MEDS: MIDODRINE HCL 2.5 MG TABLET PO ×3 (09:08→18:17)
[2019-08-30] MEDS: PRASUGREL HCL 10 MG TABLET PO (09:08)
[2019-08-30] MEDS: GABAPENTIN 300 MG CAPSULE PO ×3 (09:08→18:17)
[2019-08-30] MEDS: MUPIROCIN 2% OINT 22 GM TUBE 1 APPLIC TOPICAL ×2 (09:09→18:17)
[2019-08-30 09:23] VITALS: PULSE 76
[2019-08-30] MEDS: METOPROLOL TARTRATE 12.5 MG TABLET PO ×2 (09:23→20:17)
[2019-08-30] MEDS: SIMETHICONE 80 MG TAB.CHEW PO ×2 (11:23→18:40)
[2019-08-30 12:38] LABS: Glucose Point of Care 240 (65-105)
--- NOTE | 2019-08-30 13:44 | WPDNEURORHBP ---
Subjective Date/time seen: 08/30/19 13:44 Interval history: patient continues to complains of gas however he is on simethicone he has been moving bowel but not to his satisfaction he is on appropriate medication and should improve his neurological status is also improving and is walking several feet and that is a great hope and confidence producing for the patient and this I have pointed out to him Review of Systems Review of Systems: All systems reviewed & are unremarkable except as noted in HPI and below Functional Status Ambulation Ability Ability to Ambulate 10 Feet: Moderate Assistance X 1 Ambulation Assistive Devices: Walker, Wheeled Transfers Ability Ability to Transfer In/Out of Chair: Moderate Assistance X 2 Exam Const: General: comfortable and no acute distress Eyes: General: appearance normal, both eyes and all related structures Other: evidence of retinopathy stable Neck: Neck: supple and no JVD Resp: Effort & Inspection: normal respiratory effort Auscultation: clear to auscultation bilaterally Cardio: Rate: regular rate Rhythm: regular rhythm Skin: General skin exam: normal color and no rashes or lesions noted Neuro: Other: patient paraparesis is improving reflexes remains absent and Babinski sign is negative mental status and cranial examination is normal Extrem: Other: the examination of the extremities have already been mentioned in the previous notes and remains stable Psych: Mental Status: mental status grossly normal Objective Data Vital Signs Vital Signs: Vital Signs - 24 hr 08/29/19 14:00 08/29/19 20:07 08/29/19 22:00 Temperature 36.7 C 36.9 C Pulse Rate 77 80 88 Respiratory Rate 18 19 Blood Pressure 102/56 L 156/71 H Pulse Oximetry 97 99 08/30/19 06:00 08/30/19 09:23 Temperature 36.8 C Pulse Rate 80 76 Respiratory Rate 17 Blood Pressure 141/52 H Pulse Oximetry 96 Intake/Output Intake/Output: Intake & Output 08/27/19 08/28/19 08/29/19 08/30/19 23:59 23:59 23:59 23:59 Intake Total 720 1000 840 480 Balance 720 1000 840 480 Meds/Results Medications: Active Medications Generic Name Dose Route Start Last Admin Trade Name Freq PRN Reason Stop Dose Admin Aspirin 81 mg 08/24/19 09:00 08/30/19 09:07 Aspirin Chewable PO 81 mg DAILY CARLOS Administration Atorvastatin Calcium 40 mg 08/24/19 09:00 08/30/19 09:07 Lipitor PO 40 mg DAILY CARLOS Administration Bisacodyl 10 mg 08/23/19 21:24 08/24/19 21:38 Dulcolax Suppository RECTAL 10 mg DAILY PRN Administration Constipation Dextrose 12.5 gm 08/23/19 21:20 Dextrose 50% Syringe IV PUSH PRN PRN Hypoglycemia Protocol Docusate Sodium 100 mg 08/27/19 21:00 08/30/19 09:07 Colace Cap PO 100 mg Q12HR CARLOS Administration Furosemide 20 mg 08/24/19 09:00 08/30/19 09:07 Lasix Tablet PO 20 mg DAILY CARLOS Administration Gabapentin 300 mg 08/24/19 09:00 08/30/19 13:31 Neurontin PO 300 mg TID CARLOS Administration Glucagon 1 mg 08/23/19 21:20 Glucagon For Inj IM PRN PRN Hypoglycemia Protocol Glucose 15 gm 08/23/19 21:20 Glutose 15 PO PRN PRN Hypoglycemia Protocol Guaifenesin 200 mg 08/23/19 21:24 Guaifenesin Liq PO Q4H PRN Cough Dextrose 1,000 mls @ 100 mls/hr 08/23/19 21:20 Dextrose 5% 1,000 Ml IVPB PRN PRN Hypoglycemia Protocol Insulin Aspart 3 - 6 units 08/24/19 08:00 08/30/19 12:49 Novolog SUB-Q 3 units TIDWM CARLOS Administration Protocol Insulin Aspart 10 units 08/24/19 08:00 08/30/19 12:50 Novolog SUB-Q 10 units TIDWM CARLOS Administration Insulin Glargine 14 units 08/24/19 09:00 08/30/19 09:04 Lantus SUB-Q 14 units BID CARLOS Administration Losartan Potassium 25 mg 08/24/19 09:00 08/30/19 09:08 Cozaar PO 25 mg DAILY CARLOS Administration Melatonin 6 mg 08/25/19 21:00 08/29/19 20:08 Melatonin PO
[2019-08-30 14:00] VITALS: BP 148/62; PULSE 82; RESP 18; TEMP 36.6; O2SAT 97
[2019-08-30 17:30] LABS: Glucose Point of Care 150 (65-105)
[2019-08-30] MEDS: MELATONIN 3 MG TABLET 6 MG PO (20:16)
[2019-08-30 20:17] VITALS: PULSE 78
[2019-08-30 21:20] LABS: Glucose Point of Care 336 (65-105)
[2019-08-30 22:00] VITALS: BP 152/63; PULSE 89; RESP 19; TEMP 36.9; O2SAT 95
[2019-08-31 06:00] VITALS: BP 131/66; PULSE 76; RESP 19; TEMP 36.3; O2SAT 97
[2019-08-31 06:07] LABS: Basophils Percent Auto 0.6 % (0.2-1.2); Eosinophils Absolute Auto 0.2 K/mm3 (0-0.3); Eosinophils Percent Auto 3.3 % (0-4.4); Hematocrit 31.3 % (42.0-52.0); Hemoglobin 10.3 g/dL (14.0-18.0); Immature Granulocyte Absolute 0.03 K/mm3 (0.00-0.031); Immature Granulocyte Percent A 0.6 % (0-0.5); Lymphocytes Absolute Auto 0.79 K/mm3 (0.9-3.2); Lymphocytes Percent Auto 16.4 % (18.3-44.2); Mean Corpuscular HGB Conc 32.9 g/dl (32-36); Mean Corpuscular Hemoglobin 29.1 pg (26-34); Mean Corpuscular Volume 88.4 fl (80-100); Mean Platelet Volume 9.8 fl (7.4-10.4); Monocytes Absolute Auto 0.4 K/mm3 (0.1-0.6); Monocytes Percent Auto 8.7 % (2.6-8.5); Neutrophils Absolute Auto 3.4 K/mm3 (1.3-6.7); Neutrophils Percent Auto 70.4 % (45.5-73.1); Platelet Count Result 246 k/mm3 (150-375); Red Blood Count 3.54 M/mm3 (4.6-6.20); Red Cell Distribution Width 13.2 % (11.5-14.5); White Blood Count 4.8 K/mm3 (4.5-10.0)
[2019-08-31 06:23] LABS: Blood Urea Nitrogen 39 mg/dL (9-20); Calcium 8.9 mg/dL (8.4-10.2); Carbon Dioxide 26 mmol/L (22-30); Chloride 100 mmol/L (98-107); Estimated CRCL calculation 67 ml/min; Estimated Glomerular Filt Rate > 60; Glucose 193 mg/dL (75-110); Potassium 4.3 mmol/L (3.4-5.0); Sodium 137 mmol/L (137-145)
[2019-08-31 07:02] LABS: Glucose Point of Care 180 (65-105)
[2019-08-31] MEDS: INSULIN ASPART (*BKC) 100 UNITS/ML 10 UNITS SUB-Q ×3 (08:22→17:44)
[2019-08-31] MEDS: INSULIN ASPART (*BKC) 100 UNITS/ML SUB-Q (08:22)
[2019-08-31] MEDS: INSULIN GLARGINE (*BKC) 100 UNITS/ML 14 UNITS SUB-Q ×2 (08:25→17:42)
[2019-08-31] MEDS: ASPIRIN 81 MG CHEWABLE TABLET PO (08:26)
[2019-08-31] MEDS: GABAPENTIN 300 MG CAPSULE PO ×3 (08:27→17:41)
[2019-08-31] MEDS: FUROSEMIDE 20 MG TABLET PO (08:27)
[2019-08-31] MEDS: DOCUSATE SODIUM 100 MG CAPSULE PO ×2 (08:27→20:59)
[2019-08-31] MEDS: ATORVASTATIN 40 MG TABLET PO (08:27)
[2019-08-31 08:28] VITALS: PULSE 76
[2019-08-31] MEDS: METOPROLOL TARTRATE 12.5 MG TABLET PO ×2 (08:28→20:59)
[2019-08-31] MEDS: MUPIROCIN 2% OINT 22 GM TUBE 1 APPLIC TOPICAL ×2 (08:28→17:42)
[2019-08-31] MEDS: LOSARTAN POTASSIUM 25 MG TABLET PO (08:28)
[2019-08-31] MEDS: MIDODRINE HCL 2.5 MG TABLET PO ×3 (08:28→17:42)
[2019-08-31] MEDS: THERAPEUTIC MULTIVITAMINS/MINERALS TAB (*BKC) 1 TABLET PO (08:28)
[2019-08-31] MEDS: PRASUGREL HCL 10 MG TABLET PO (08:29)
--- NOTE | 2019-08-31 10:00 | WPDNEURORHBP ---
Subjective Date/time seen: August 31, 2019 at 10:00 a.m. Interval history: patient is doing fairly well his GI complaints are better and also neurological improving no headache double vision blurred vision or any new paresthesias weakness of the lower extremities is improving and that is very process missing patient is happy about it Review of Systems Review of Systems: All systems reviewed & are unremarkable except as noted in HPI and below Functional Status Ambulation Ability Ability to Ambulate 10 Feet: Moderate Assistance X 1 Ambulation Assistive Devices: Walker, Wheeled Transfers Ability Ability to Transfer In/Out of Chair: Moderate Assistance X 1 Exam Const: General: comfortable and no acute distress Eyes: General: appearance normal, both eyes and all related structures Other: evidence of retinopathy is stable Neck: Neck: supple and no JVD Resp: Effort & Inspection: normal respiratory effort Auscultation: clear to auscultation bilaterally Cardio: Rate: regular rate Rhythm: regular rhythm GI: GI Palp: Yes Soft to palpation Auscultation: normal bowel sounds Skin: General skin exam: normal color and no rashes or lesions noted Neuro: Other: improving paraparesis reflexes D me in depressed to absent sensory deficit remains the same likewise the deficit in the extremities related to the previous injury particularly the left upper extremity remains the same Extrem: Other: the left upper extremity the hands are basically the same and in fact in certain aspect he is able to use the hands much better than before Psych: Mental Status: mental status grossly normal Objective Data Vital Signs Vital Signs: Vital Signs - 24 hr 08/31/19 14:00 08/31/19 20:59 08/31/19 22:00 Temperature 36.8 C 37.2 C Pulse Rate 75 75 86 Respiratory Rate 19 19 Blood Pressure 150/61 H 152/68 H Pulse Oximetry 99 97 09/01/19 06:00 09/01/19 08:19 Temperature 36.8 C Pulse Rate 71 71 Respiratory Rate 18 Blood Pressure 135/58 L Pulse Oximetry 95 Intake/Output Intake/Output: Intake & Output 08/29/19 08/30/19 08/31/19 09/01/19 23:59 23:59 23:59 23:59 Intake Total 840 960 960 480 Balance 840 960 960 480 Meds/Results Medications: Active Medications Generic Name Dose Route Start Last Admin Trade Name Freq PRN Reason Stop Dose Admin Aspirin 81 mg 08/24/19 09:00 09/01/19 08:19 Aspirin Chewable PO 81 mg DAILY CARLOS Administration Atorvastatin Calcium 40 mg 08/24/19 09:00 09/01/19 08:19 Lipitor PO 40 mg DAILY CARLOS Administration Bisacodyl 10 mg 08/23/19 21:24 08/24/19 21:38 Dulcolax Suppository RECTAL 10 mg DAILY PRN Administration Constipation Dextrose 12.5 gm 08/23/19 21:20 Dextrose 50% Syringe IV PUSH PRN PRN Hypoglycemia Protocol Docusate Sodium 100 mg 08/27/19 21:00 09/01/19 08:18 Colace Cap PO 100 mg Q12HR CARLOS Administration Furosemide 20 mg 08/24/19 09:00 09/01/19 08:18 Lasix Tablet PO 20 mg DAILY CARLOS Administration Gabapentin 300 mg 08/24/19 09:00 09/01/19 08:18 Neurontin PO 300 mg TID CARLOS Administration Glucagon 1 mg 08/23/19 21:20 Glucagon For Inj IM PRN PRN Hypoglycemia Protocol Glucose 15 gm 08/23/19 21:20 Glutose 15 PO PRN PRN Hypoglycemia Protocol Guaifenesin 200 mg 08/23/19 21:24 Guaifenesin Liq PO Q4H PRN Cough Dextrose 1,000 mls @ 100 mls/hr 08/23/19 21:20 Dextrose 5% 1,000 Ml IVPB PRN PRN Hypoglycemia Protocol Insulin Aspart 3 - 6 units 08/24/19 08:00 09/01/19 07:56 Novolog SUB-Q 3 units TIDWM CARLOS Administration Protocol Insulin Aspart 10 units 08/24/19 08:00 09/01/19 07:55 Novolog SUB-Q 10 units TIDWM CARLOS Administration Insulin Glargine 14 units 08/24/19 09:00 09/01/19 07:56 Lantus SUB-Q 14 units BID CARLOS Administration Losartan Potassium 25 mg 08/24/19 09:00 09/01/19
[2019-08-31 12:03] LABS: Glucose Point of Care 132 (65-105)
--- NOTE | 2019-08-31 13:48 | PCDIET ---
Nutrition Follow-Up Complete: Nutrition Diagnosis: Altered nutrition related labs related to diabetes mellitus as evidenced by glucose of 366. Nutrition Goals: Intakes >75%, improved glucose control (<200mg/dL) Intake goal met with intakes 75-100% of most meals on diabetic diet which is appropriate. Glucose levels <200mg/dL most of the time, but not 100%. Last recorded weight is 89.3 kg. Recommend obtaining new weight. Bowel Motility: No c/o reported. Labs Reviewed: Glu (180), BUN (39) Meds Noted: Colace, Lasix, Novolog, Lantus, MVI with minerals Additional Notes: Friction area to buttock; left lateral heel with pressure area (appears unopened). Recommend continuing present diet and continuing to monitor with same goals. Nutrition Monitoring and Evaluation: Follow up in 7 days.
[2019-08-31 14:00] VITALS: BP 150/61; PULSE 75; RESP 19; TEMP 36.8; O2SAT 99
[2019-08-31 17:02] LABS: Glucose Point of Care 62 (65-105)
[2019-08-31 17:52] LABS: Glucose Point of Care 171 (65-105)
[2019-08-31 20:59] VITALS: PULSE 75
[2019-08-31] MEDS: MELATONIN 3 MG TABLET 6 MG PO (20:59)
[2019-08-31 21:28] LABS: Glucose Point of Care 136 (65-105)
[2019-08-31 22:00] VITALS: BP 152/68; PULSE 86; RESP 19; TEMP 37.2; O2SAT 97
[2019-09-01 06:00] VITALS: BP 135/58; PULSE 71; RESP 18; TEMP 36.8; O2SAT 95
[2019-09-01 07:11] LABS: Glucose Point of Care 240 (65-105)
[2019-09-01] MEDS: INSULIN ASPART (*BKC) 100 UNITS/ML 10 UNITS SUB-Q ×3 (07:55→17:49)
[2019-09-01] MEDS: INSULIN ASPART (*BKC) 100 UNITS/ML SUB-Q (07:56)
[2019-09-01] MEDS: INSULIN GLARGINE (*BKC) 100 UNITS/ML 14 UNITS SUB-Q ×2 (07:56→17:54)
[2019-09-01] MEDS: GABAPENTIN 300 MG CAPSULE PO ×3 (08:18→17:49)
[2019-09-01] MEDS: DOCUSATE SODIUM 100 MG CAPSULE PO ×2 (08:18→20:29)
[2019-09-01] MEDS: FUROSEMIDE 20 MG TABLET PO (08:18)
[2019-09-01 08:19] VITALS: PULSE 71
[2019-09-01] MEDS: METOPROLOL TARTRATE 12.5 MG TABLET PO ×2 (08:19→20:29)
[2019-09-01] MEDS: ASPIRIN 81 MG CHEWABLE TABLET PO (08:19)
[2019-09-01] MEDS: LOSARTAN POTASSIUM 25 MG TABLET PO (08:19)
[2019-09-01] MEDS: ATORVASTATIN 40 MG TABLET PO (08:19)
[2019-09-01] MEDS: MIDODRINE HCL 2.5 MG TABLET PO ×3 (08:20→17:50)
[2019-09-01] MEDS: MUPIROCIN 2% OINT 22 GM TUBE 1 APPLIC TOPICAL ×2 (08:20→17:50)
[2019-09-01] MEDS: PRASUGREL HCL 10 MG TABLET PO (08:20)
[2019-09-01] MEDS: THERAPEUTIC MULTIVITAMINS/MINERALS TAB (*BKC) 1 TABLET PO (08:20)
[2019-09-01 12:31] LABS: Glucose Point of Care 156 (65-105)
--- NOTE | 2019-09-01 13:01 | WPDNEURORHBP ---
Subjective Date/time seen: 09/01/19 13:01 Interval history: patient is doing fairly well does not have any new specific complaints his abdominal complains of gas and constipation are seemingly resolved he is making excellent progress and walking better but is still has bilateral foot drop which is definitely also has improved Review of Systems Review of Systems: All systems reviewed & are unremarkable except as noted in HPI and below Functional Status Ambulation Ability Ability to Ambulate 10 Feet: Moderate Assistance X 1 Ambulation Assistive Devices: Walker, Wheeled Transfers Ability Ability to Transfer In/Out of Chair: Moderate Assistance X 1 Exam Const: General: comfortable and no acute distress Eyes: General: appearance normal, both eyes and all related structures Other: we there is evidence of retinopathy which is stable Neck: Neck: supple and no JVD Resp: Effort & Inspection: normal respiratory effort Auscultation: clear to auscultation bilaterally Cardio: Rate: regular rate Rhythm: regular rhythm GI: GI Palp: Yes Soft to palpation Auscultation: normal bowel sounds Skin: General skin exam: normal color and no rashes or lesions noted Neuro: Other: patient is improving overall however still has significant weakness of the lower extremities hampering the activities of daily living but there is definite improvement in the lower extremity weakness proximal more than the distal though Objective Data Vital Signs Vital Signs: Vital Signs - 24 hr 08/31/19 14:00 08/31/19 20:59 08/31/19 22:00 Temperature 36.8 C 37.2 C Pulse Rate 75 75 86 Respiratory Rate 19 19 Blood Pressure 150/61 H 152/68 H Pulse Oximetry 99 97 09/01/19 06:00 09/01/19 08:19 Temperature 36.8 C Pulse Rate 71 71 Respiratory Rate 18 Blood Pressure 135/58 L Pulse Oximetry 95 Intake/Output Intake/Output: Intake & Output 08/29/19 08/30/19 08/31/19 09/01/19 23:59 23:59 23:59 23:59 Intake Total 840 960 960 480 Balance 840 960 960 480 Meds/Results Medications: Active Medications Generic Name Dose Route Start Last Admin Trade Name Freq PRN Reason Stop Dose Admin Aspirin 81 mg 08/24/19 09:00 09/01/19 08:19 Aspirin Chewable PO 81 mg DAILY CARLOS Administration Atorvastatin Calcium 40 mg 08/24/19 09:00 09/01/19 08:19 Lipitor PO 40 mg DAILY CARLOS Administration Bisacodyl 10 mg 08/23/19 21:24 08/24/19 21:38 Dulcolax Suppository RECTAL 10 mg DAILY PRN Administration Constipation Dextrose 12.5 gm 08/23/19 21:20 Dextrose 50% Syringe IV PUSH PRN PRN Hypoglycemia Protocol Docusate Sodium 100 mg 08/27/19 21:00 09/01/19 08:18 Colace Cap PO 100 mg Q12HR CARLOS Administration Furosemide 20 mg 08/24/19 09:00 09/01/19 08:18 Lasix Tablet PO 20 mg DAILY CARLOS Administration Gabapentin 300 mg 08/24/19 09:00 09/01/19 08:18 Neurontin PO 300 mg TID CARLOS Administration Glucagon 1 mg 08/23/19 21:20 Glucagon For Inj IM PRN PRN Hypoglycemia Protocol Glucose 15 gm 08/23/19 21:20 Glutose 15 PO PRN PRN Hypoglycemia Protocol Guaifenesin 200 mg 08/23/19 21:24 Guaifenesin Liq PO Q4H PRN Cough Dextrose 1,000 mls @ 100 mls/hr 08/23/19 21:20 Dextrose 5% 1,000 Ml IVPB PRN PRN Hypoglycemia Protocol Insulin Aspart 3 - 6 units 08/24/19 08:00 09/01/19 07:56 Novolog SUB-Q 3 units TIDWM CARLOS Administration Protocol Insulin Aspart 10 units 08/24/19 08:00 09/01/19 07:55 Novolog SUB-Q 10 units TIDWM CARLOS Administration Insulin Glargine 14 units 08/24/19 09:00 09/01/19 07:56 Lantus SUB-Q 14 units BID CARLOS Administration Losartan Potassium 25 mg 08/24/19 09:00 09/01/19 08:19 Cozaar PO 25 mg DAILY CARLOS Administration Melatonin 6 mg 08/25/19 21:00 08/31/19 20:59 Melatonin PO 6 mg HS CARLOS Administration Metoprolol Tartrate 12
[2019-09-01 14:00] VITALS: BP 139/67; PULSE 76; RESP 17; TEMP 36.6; O2SAT 97
[2019-09-01 17:22] LABS: Glucose Point of Care 131 (65-105)
[2019-09-01 20:29] VITALS: PULSE 82
[2019-09-01] MEDS: MELATONIN 3 MG TABLET 6 MG PO (20:29)
[2019-09-01 20:47] LABS: Glucose Point of Care 267 (65-105)
[2019-09-01 22:00] VITALS: BP 168/55; PULSE 91; RESP 18; TEMP 36.8; O2SAT 98
[2019-09-02 06:00] VITALS: BP 129/58; PULSE 75; RESP 18; TEMP 36.9; O2SAT 97
[2019-09-02 06:36] LABS: Glucose Point of Care 257 (65-105)
[2019-09-02 08:00] VITALS: PULSE 75; RESP 18; O2SAT 97
[2019-09-02] MEDS: ATORVASTATIN 40 MG TABLET PO (08:39)
[2019-09-02] MEDS: PRASUGREL HCL 10 MG TABLET PO (08:39)
[2019-09-02] MEDS: GABAPENTIN 300 MG CAPSULE PO ×3 (08:39→17:37)
[2019-09-02] MEDS: DOCUSATE SODIUM 100 MG CAPSULE PO ×2 (08:40→20:15)
[2019-09-02] MEDS: METOPROLOL TARTRATE 12.5 MG TABLET PO ×2 (08:40→20:15)
[2019-09-02] MEDS: LOSARTAN POTASSIUM 25 MG TABLET PO (08:40)
[2019-09-02] MEDS: ASPIRIN 81 MG CHEWABLE TABLET PO (08:40)
[2019-09-02] MEDS: MIDODRINE HCL 2.5 MG TABLET PO ×3 (08:40→17:38)
[2019-09-02] MEDS: FUROSEMIDE 20 MG TABLET PO (08:40)
[2019-09-02] MEDS: THERAPEUTIC MULTIVITAMINS/MINERALS TAB (*BKC) 1 TABLET PO (08:40)
[2019-09-02] MEDS: MUPIROCIN 2% OINT 22 GM TUBE 1 APPLIC TOPICAL ×2 (08:41→17:37)
[2019-09-02] MEDS: INSULIN GLARGINE (*BKC) 100 UNITS/ML 14 UNITS SUB-Q ×2 (08:42→17:38)
[2019-09-02] MEDS: INSULIN ASPART (*BKC) 100 UNITS/ML 10 UNITS SUB-Q ×3 (08:44→17:41)
[2019-09-02] MEDS: INSULIN ASPART (*BKC) 100 UNITS/ML SUB-Q (08:44)
[2019-09-02 12:04] LABS: Glucose Point of Care 143 (65-105)
[2019-09-02 14:00] VITALS: BP 112/62; PULSE 80; RESP 20; TEMP 36.5; O2SAT 98
[2019-09-02 17:14] LABS: Glucose Point of Care 168 (65-105)
[2019-09-02] MEDS: MELATONIN 3 MG TABLET 6 MG PO (20:15)
[2019-09-02 20:53] LABS: Glucose Point of Care 200 (65-105)
[2019-09-02 22:00] VITALS: BP 156/48; PULSE 84; RESP 18; TEMP 36.6; O2SAT 99
[2019-09-03 06:00] VITALS: BP 135/45; PULSE 72; RESP 18; TEMP 37.1; O2SAT 97
[2019-09-03 06:23] LABS: Glucose Point of Care 141 (65-105)
[2019-09-03 07:55] VITALS: PULSE 72
[2019-09-03] MEDS: MIDODRINE HCL 2.5 MG TABLET PO ×3 (07:55→17:32)
[2019-09-03] MEDS: ATORVASTATIN 40 MG TABLET PO (07:55)
[2019-09-03] MEDS: THERAPEUTIC MULTIVITAMINS/MINERALS TAB (*BKC) 1 TABLET PO (07:55)
[2019-09-03] MEDS: METOPROLOL TARTRATE 12.5 MG TABLET PO ×2 (07:55→21:01)
[2019-09-03] MEDS: LOSARTAN POTASSIUM 25 MG TABLET PO (07:56)
[2019-09-03] MEDS: GABAPENTIN 300 MG CAPSULE PO ×3 (07:56→17:31)
[2019-09-03] MEDS: ASPIRIN 81 MG CHEWABLE TABLET PO (07:56)
[2019-09-03] MEDS: INSULIN GLARGINE (*BKC) 100 UNITS/ML 14 UNITS SUB-Q ×2 (07:57→17:35)
[2019-09-03 08:00] VITALS: PULSE 72; RESP 18; O2SAT 97
[2019-09-03] MEDS: INSULIN ASPART (*BKC) 100 UNITS/ML 10 UNITS SUB-Q ×3 (08:00→17:38)
[2019-09-03] MEDS: FUROSEMIDE 20 MG TABLET PO (08:02)
[2019-09-03] MEDS: MUPIROCIN 2% OINT 22 GM TUBE 1 APPLIC TOPICAL ×2 (08:02→17:32)
[2019-09-03] MEDS: DOCUSATE SODIUM 100 MG CAPSULE PO ×2 (08:02→21:00)
[2019-09-03] MEDS: PRASUGREL HCL 10 MG TABLET PO (08:03)
[2019-09-03 11:59] LABS: Glucose Point of Care 104 (65-105)
--- NOTE | 2019-09-03 12:32 | WPDNEURORHBP ---
Subjective Date/time seen: 09/03/19 12:32 stable with bilateral foot drop Review of Systems Review of Systems: All systems reviewed & are unremarkable except as noted in HPI and below Functional Status Ambulation Ability Ability to Ambulate 10 Feet: Minimum Assistance X 1 Ambulation Assistive Devices: Walker, Wheeled Transfers Ability Ability to Transfer In/Out of Chair: Moderate Assistance X 1 Exam Const: General: comfortable and no acute distress Neck: Neck: full ROM Resp: Effort & Inspection: normal respiratory effort Auscultation: clear to auscultation bilaterally Cardio: Rate: regular rate Rhythm: regular rhythm GI: Auscultation: normal bowel sounds Skin: General skin exam: no rashes or lesions noted Neuro: General: patient oriented x3 and no focal motor deficits (distal >proximal weekness though improving with sluggish reflexes) Objective Data Vital Signs Vital Signs: Vital Signs - 24 hr 09/02/19 14:00 09/02/19 22:00 09/03/19 06:00 Temperature 36.5 C 36.6 C 37.1 C Pulse Rate 80 84 72 Respiratory Rate 20 18 18 Blood Pressure 112/62 156/48 H 135/45 L Pulse Oximetry 98 99 97 09/03/19 07:55 Temperature Pulse Rate 72 Respiratory Rate Blood Pressure Pulse Oximetry Intake/Output Intake/Output: Intake & Output 08/31/19 09/01/19 09/02/19 09/03/19 23:59 23:59 23:59 23:59 Intake Total 960 1440 720 240 Balance 960 1440 720 240 Meds/Results Medications: Active Medications Generic Name Dose Route Start Last Admin Trade Name Freq PRN Reason Stop Dose Admin Aspirin 81 mg 08/24/19 09:00 09/03/19 07:56 Aspirin Chewable PO 81 mg DAILY CARLOS Administration Atorvastatin Calcium 40 mg 08/24/19 09:00 09/03/19 07:55 Lipitor PO 40 mg DAILY CARLOS Administration Bisacodyl 10 mg 08/23/19 21:24 08/24/19 21:38 Dulcolax Suppository RECTAL 10 mg DAILY PRN Administration Constipation Dextrose 12.5 gm 08/23/19 21:20 Dextrose 50% Syringe IV PUSH PRN PRN Hypoglycemia Protocol Docusate Sodium 100 mg 08/27/19 21:00 09/03/19 08:02 Colace Cap PO 100 mg Q12HR CARLOS Administration Furosemide 20 mg 08/24/19 09:00 09/03/19 08:02 Lasix Tablet PO 20 mg DAILY CARLOS Administration Gabapentin 300 mg 08/24/19 09:00 09/03/19 12:12 Neurontin PO 300 mg TID CARLOS Administration Glucagon 1 mg 08/23/19 21:20 Glucagon For Inj IM PRN PRN Hypoglycemia Protocol Glucose 15 gm 08/23/19 21:20 Glutose 15 PO PRN PRN Hypoglycemia Protocol Guaifenesin 200 mg 08/23/19 21:24 Guaifenesin Liq PO Q4H PRN Cough Dextrose 1,000 mls @ 100 mls/hr 08/23/19 21:20 Dextrose 5% 1,000 Ml IVPB PRN PRN Hypoglycemia Protocol Insulin Aspart 3 - 6 units 08/24/19 08:00 09/03/19 12:12 Novolog SUB-Q Not Given TIDWM CARLOS Protocol Insulin Aspart 10 units 08/24/19 08:00 09/03/19 12:13 Novolog SUB-Q 10 units TIDWM CARLOS Administration Insulin Glargine 14 units 08/24/19 09:00 09/03/19 07:57 Lantus SUB-Q 14 units BID CARLOS Administration Losartan Potassium 25 mg 08/24/19 09:00 09/03/19 07:56 Cozaar PO 25 mg DAILY CARLOS Administration Melatonin 6 mg 08/25/19 21:00 09/02/19 20:15 Melatonin PO 6 mg HS CARLOS Administration Metoprolol Tartrate 12.5 mg 08/24/19 09:00 09/03/19 07:55 Lopressor PO 12.5 mg Q12HR CARLOS Administration Miconazole Nitrate 1 applic 08/24/19 12:20 09/03/19 08:02 [place] TOPICAL 1 applic Q12HR CARLOS Administration Midodrine 2.5 mg 08/26/19 17:30 09/03/19 12:12 Proamatine PO 2.5 mg 0900,1300,1730 CARLOS Administration Multivitamins/Calcium 1 tablet 08/24/19 09:00 09/03/19 07:55 Therapeutic Multivitamins/Minerals PO 1 tablet DAILY CARLOS Administration Mupirocin 1 applic 08/24/19 09:00 09/03/19 08:02 Bactroban 2% Oint TOPICAL 1 applic BID CARLOS Administration No
[2019-09-03 14:00] VITALS: BP 127/51; PULSE 78; RESP 20; TEMP 36.5; O2SAT 98
[2019-09-03 17:05] LABS: Glucose Point of Care 207 (65-105)
[2019-09-03] MEDS: INSULIN ASPART (*BKC) 100 UNITS/ML SUB-Q (17:38)
[2019-09-03 21:01] VITALS: PULSE 81
[2019-09-03] MEDS: MELATONIN 3 MG TABLET 6 MG PO (21:04)
[2019-09-03 22:00] VITALS: BP 137/53; PULSE 81; RESP 18; TEMP 36.5; O2SAT 98
[2019-09-03 22:15] LABS: Glucose Point of Care 100 (65-105)
[2019-09-04 06:00] VITALS: BP 137/52; PULSE 74; RESP 18; TEMP 36.4; O2SAT 95
[2019-09-04] MEDS: INSULIN ASPART (*BKC) 100 UNITS/ML 10 UNITS SUB-Q ×3 (09:53→18:16)
[2019-09-04] MEDS: ATORVASTATIN 40 MG TABLET PO (09:54)
[2019-09-04] MEDS: FUROSEMIDE 20 MG TABLET PO (09:54)
[2019-09-04] MEDS: ASPIRIN 81 MG CHEWABLE TABLET PO (09:54)
[2019-09-04] MEDS: DOCUSATE SODIUM 100 MG CAPSULE PO ×2 (09:54→20:43)
[2019-09-04] MEDS: GABAPENTIN 300 MG CAPSULE PO ×3 (09:54→16:56)
[2019-09-04] MEDS: MIDODRINE HCL 2.5 MG TABLET PO ×3 (09:55→16:57)
[2019-09-04] MEDS: INSULIN GLARGINE (*BKC) 100 UNITS/ML 14 UNITS SUB-Q ×2 (09:55→17:55)
[2019-09-04 09:58] VITALS: PULSE 74
[2019-09-04] MEDS: METOPROLOL TARTRATE 12.5 MG TABLET PO ×2 (09:58→20:44)
[2019-09-04] MEDS: MUPIROCIN 2% OINT 22 GM TUBE 1 APPLIC TOPICAL ×2 (09:58→18:19)
[2019-09-04] MEDS: LOSARTAN POTASSIUM 25 MG TABLET PO (09:58)
[2019-09-04] MEDS: PRASUGREL HCL 10 MG TABLET PO (09:59)
[2019-09-04] MEDS: THERAPEUTIC MULTIVITAMINS/MINERALS TAB (*BKC) 1 TABLET PO (09:59)
[2019-09-04 12:13] LABS: Glucose Point of Care 134 (65-105)
[2019-09-04 12:35] LABS: Glucose Point of Care 241 (65-105)
[2019-09-04] MEDS: INSULIN ASPART (*BKC) 100 UNITS/ML SUB-Q (13:07)
[2019-09-04 14:00] VITALS: BP 129/53; PULSE 78; RESP 17; TEMP 36.7; O2SAT 100
[2019-09-04 17:27] LABS: Glucose Point of Care 77 (65-105)
[2019-09-04] MEDS: MELATONIN 3 MG TABLET 6 MG PO (20:43)
[2019-09-04 20:44] VITALS: PULSE 80
[2019-09-04 21:25] LABS: Glucose Point of Care 141 (65-105)
[2019-09-04 22:00] VITALS: BP 127/54; PULSE 73; RESP 16; TEMP 36.7; O2SAT 95
[2019-09-05 06:00] VITALS: BP 125/61; PULSE 72; RESP 16; TEMP 36.6; O2SAT 98
[2019-09-05 07:08] LABS: Glucose Point of Care 115 (65-105)
[2019-09-05] MEDS: DOCUSATE SODIUM 100 MG CAPSULE PO ×2 (08:58→20:52)
[2019-09-05] MEDS: FUROSEMIDE 20 MG TABLET PO (08:58)
[2019-09-05] MEDS: ASPIRIN 81 MG CHEWABLE TABLET PO (08:58)
[2019-09-05] MEDS: ATORVASTATIN 40 MG TABLET PO (08:58)
[2019-09-05 08:59] VITALS: PULSE 62
[2019-09-05] MEDS: METOPROLOL TARTRATE 12.5 MG TABLET PO ×2 (08:59→20:52)
[2019-09-05] MEDS: GABAPENTIN 300 MG CAPSULE PO ×3 (08:59→17:55)
[2019-09-05] MEDS: LOSARTAN POTASSIUM 25 MG TABLET PO (09:00)
[2019-09-05] MEDS: MIDODRINE HCL 2.5 MG TABLET PO ×3 (09:00→17:59)
[2019-09-05] MEDS: THERAPEUTIC MULTIVITAMINS/MINERALS TAB (*BKC) 1 TABLET PO (09:00)
[2019-09-05] MEDS: PRASUGREL HCL 10 MG TABLET PO (09:01)
[2019-09-05] MEDS: MUPIROCIN 2% OINT 22 GM TUBE 1 APPLIC TOPICAL ×2 (09:01→18:00)
[2019-09-05] MEDS: INSULIN GLARGINE (*BKC) 100 UNITS/ML 14 UNITS SUB-Q ×2 (09:02→17:57)
[2019-09-05] MEDS: INSULIN ASPART (*BKC) 100 UNITS/ML 10 UNITS SUB-Q ×3 (09:06→17:56)
[2019-09-05 12:10] LABS: Glucose Point of Care 146 (65-105)
--- NOTE | 2019-09-05 13:40 | WPDNEURORHBP ---
Subjective Date/time seen: 09/05/19 13:40 Interval history: patient is improving significantly he has been walking up to 200 feet and quite happy about it The son is here today for training and his helping him quite well. He will need further therapy to further improvement to a point of being at least near independent denies any headache chest pain shortness of breath fever chills sore throat nausea vomiting Review of Systems Review of Systems: All systems reviewed & are unremarkable except as noted in HPI and below Functional Status Ambulation Ability Ability to Ambulate 10 Feet: Minimum Assistance X 1 Ability to Ambulate 50 Feet With 2 Turns: Minimum Assistance X 1 Ambulation Assistive Devices: Walker, Wheeled Transfers Ability Ability to Transfer In/Out of Chair: Moderate Assistance X 1 Exam Const: General: comfortable and no acute distress HENMT: Other: normal Eyes: General: appearance normal, both eyes and all related structures Neck: Neck: supple and no JVD Resp: Effort & Inspection: normal respiratory effort Auscultation: clear to auscultation bilaterally Cardio: Rate: regular rate Rhythm: regular rhythm GI: GI Palp: Yes Soft to palpation Auscultation: normal bowel sounds Skin: General skin exam: normal color and no rashes or lesions noted Neuro: Other: patient's neurological status particularly referring to lower extremity strength is much improved his walking with the assistance and a walker up to 200 feet which is remarkable improvement Extrem: Other: the status of the neuropathy and the findings in the left upper extremity remained unchanged Psych: Mental Status: mental status grossly normal Objective Data Vital Signs Vital Signs: Vital Signs - 24 hr 09/04/19 14:00 09/04/19 20:44 09/04/19 22:00 Temperature 36.7 C 36.7 C Pulse Rate 78 80 73 Respiratory Rate 17 16 Blood Pressure 129/53 L 127/54 L Pulse Oximetry 100 95 09/05/19 06:00 09/05/19 08:59 Temperature 36.6 C Pulse Rate 72 62 Respiratory Rate 16 Blood Pressure 125/61 Pulse Oximetry 98 Intake/Output Intake/Output: Intake & Output 09/02/19 09/03/19 09/04/19 09/05/19 23:59 23:59 23:59 23:59 Intake Total 683 288 3645 Balance 993 431 0032 Meds/Results Medications: Active Medications Generic Name Dose Route Start Last Admin Trade Name Freq PRN Reason Stop Dose Admin Aspirin 81 mg 08/24/19 09:00 09/05/19 08:58 Aspirin Chewable PO 81 mg DAILY CARLOS Administration Atorvastatin Calcium 40 mg 08/24/19 09:00 09/05/19 08:58 Lipitor PO 40 mg DAILY CARLOS Administration Bisacodyl 10 mg 08/23/19 21:24 08/24/19 21:38 Dulcolax Suppository RECTAL 10 mg DAILY PRN Administration Constipation Dextrose 12.5 gm 08/23/19 21:20 Dextrose 50% Syringe IV PUSH PRN PRN Hypoglycemia Protocol Docusate Sodium 100 mg 08/27/19 21:00 09/05/19 08:58 Colace Cap PO 100 mg Q12HR CARLOS Administration Furosemide 20 mg 08/24/19 09:00 09/05/19 08:58 Lasix Tablet PO 20 mg DAILY CARLOS Administration Gabapentin 300 mg 08/24/19 09:00 09/05/19 13:28 Neurontin PO 300 mg TID CARLOS Administration Glucagon 1 mg 08/23/19 21:20 Glucagon For Inj IM PRN PRN Hypoglycemia Protocol Glucose 15 gm 08/23/19 21:20 Glutose 15 PO PRN PRN Hypoglycemia Protocol Guaifenesin 200 mg 08/23/19 21:24 Guaifenesin Liq PO Q4H PRN Cough Dextrose 1,000 mls @ 100 mls/hr 08/23/19 21:20 Dextrose 5% 1,000 Ml IVPB PRN PRN Hypoglycemia Protocol Insulin Aspart 3 - 6 units 08/24/19 08:00 09/05/19 13:26 Novolog SUB-Q Not Given TIDWM [facility] Protocol Insulin Aspart 10 units 08/24/19 08:00 09/05/19 13:25 Novolog SUB-Q 10 units TIDWM CARLOS Administration Insulin Glargine 14 units 08/24/19 09:00 09/05/19 09:02 Lantus SUB-Q 14 units BID CARLOS Administration Losartan Potassium
[2019-09-05 14:00] VITALS: BP 118/48; PULSE 76; RESP 18; TEMP 36.7; O2SAT 96
[2019-09-05 17:30] LABS: Glucose Point of Care 123 (65-105)
[2019-09-05 20:52] VITALS: PULSE 80
[2019-09-05] MEDS: MELATONIN 3 MG TABLET 6 MG PO (20:55)
[2019-09-05 21:35] LABS: Glucose Point of Care 71 (65-105)
[2019-09-05 22:00] VITALS: BP 172/58; PULSE 83; RESP 19; TEMP 36.7; O2SAT 99
[2019-09-06 06:00] VITALS: BP 114/41; PULSE 66; RESP 18; TEMP 36.3; O2SAT 94
[2019-09-06 06:52] LABS: Glucose Point of Care 131 (65-105)
[2019-09-06] MEDS: INSULIN ASPART (*BKC) 100 UNITS/ML 10 UNITS SUB-Q ×2 (09:26→13:01)
[2019-09-06] MEDS: INSULIN GLARGINE (*BKC) 100 UNITS/ML 14 UNITS SUB-Q ×2 (09:27→17:55)
[2019-09-06] MEDS: GABAPENTIN 300 MG CAPSULE PO ×3 (09:31→17:48)
[2019-09-06] MEDS: ATORVASTATIN 40 MG TABLET PO (09:31)
[2019-09-06] MEDS: FUROSEMIDE 20 MG TABLET PO (09:31)
[2019-09-06] MEDS: ASPIRIN 81 MG CHEWABLE TABLET PO (09:31)
[2019-09-06] MEDS: DOCUSATE SODIUM 100 MG CAPSULE PO ×2 (09:31→20:10)
[2019-09-06 09:32] VITALS: PULSE 80
[2019-09-06] MEDS: THERAPEUTIC MULTIVITAMINS/MINERALS TAB (*BKC) 1 TABLET PO (09:32)
[2019-09-06] MEDS: MIDODRINE HCL 2.5 MG TABLET PO ×3 (09:32→18:00)
[2019-09-06] MEDS: METOPROLOL TARTRATE 12.5 MG TABLET PO ×2 (09:32→20:09)
[2019-09-06] MEDS: MUPIROCIN 2% OINT 22 GM TUBE 1 APPLIC TOPICAL ×2 (09:32→18:00)
[2019-09-06] MEDS: LOSARTAN POTASSIUM 25 MG TABLET PO (09:32)
[2019-09-06] MEDS: PRASUGREL HCL 10 MG TABLET PO (09:32)
[2019-09-06 10:43] LABS: Glucose Point of Care 325 (65-105)
[2019-09-06 12:07] LABS: Glucose Point of Care 119 (65-105)
[2019-09-06 14:00] VITALS: BP 122/71; PULSE 74; RESP 17; TEMP 36.6; O2SAT 97
--- NOTE | 2019-09-06 14:11 | WPDNEURORHBP ---
Subjective Date/time seen: 09/06/19 14:11 Interval history: patient complained to the head that he was given the insulin this morning and our after the meal and that is why the sugar was up this examiner will look into it patient is doing otherwise fairly well improving in his ability to walk with the walker of course which is significant improvement from the time he came to us he denies any headache nausea vomiting chest pain or shortness of breath Review of Systems Review of Systems: All systems reviewed & are unremarkable except as noted in HPI and below Functional Status Ambulation Ability Ability to Ambulate 10 Feet: Minimum Assistance X 1 Ability to Ambulate 50 Feet With 2 Turns: Minimum Assistance X 1 Ambulation Assistive Devices: Walker, Wheeled Transfers Ability Ability to Transfer In/Out of Chair: Moderate Assistance X 1 Exam Const: General: comfortable and no acute distress HENMT: General nose exam: Normal nares present Mouth: Yes moist mucous membranes Eyes: General: appearance normal, both eyes and all related structures Other: evidence of retinopathy related to long-standing diabetes type 1 Neck: Neck: supple and no JVD Resp: Effort & Inspection: normal respiratory effort Auscultation: clear to auscultation bilaterally Cardio: Rate: regular rate Rhythm: regular rhythm GI: GI Palp: Yes Soft to palpation Auscultation: normal bowel sounds Skin: General skin exam: normal color and no rashes or lesions noted Neuro: Other: patient's gait and strength in the lower extremities has significantly improved his mental status is normal likewise apart from having retinopathy his cranial nerve examination is also normal the evidence of significant peripheral neuropathy left upper extremity more so than the upper extremity combined with lower extremity weakness which is related to the back surgery and combination of remains the same but the strength has improved Extrem: Other: as documented Sineff for the evidence of peripheral neuropathy and injury to the left upper extremity from the [facility] in Objective Data Vital Signs Vital Signs: Vital Signs - 24 hr 09/05/19 20:52 09/05/19 22:00 09/06/19 06:00 Temperature 36.7 C 36.3 C L Pulse Rate 80 83 66 Respiratory Rate 19 18 Blood Pressure 172/58 H 114/41 L Pulse Oximetry 99 94 09/06/19 09:32 Temperature Pulse Rate 80 Respiratory Rate Blood Pressure Pulse Oximetry Intake/Output Intake/Output: Intake & Output 09/03/19 09/04/19 09/05/1909/06/20 23:59 23:59 23:59 23:59 Intake Total 720 1320 420 240 Balance 720 1320 420 240 Meds/Results Medications: Active Medications Generic Name Dose Route Start Last Admin Trade Name Freq PRN Reason Stop Dose Admin Aspirin 81 mg 08/24/19 09:00 09/06/19 09:31 Aspirin Chewable PO 81 mg DAILY CARLOS Administration Atorvastatin Calcium 40 mg 08/24/19 09:00 09/06/19 09:31 Lipitor PO 40 mg DAILY CARLOS Administration Bisacodyl 10 mg 08/23/19 21:24 08/24/19 21:38 Dulcolax Suppository RECTAL 10 mg DAILY PRN Administration Constipation Dextrose 12.5 gm 08/23/19 21:20 Dextrose 50% Syringe IV PUSH PRN PRN Hypoglycemia Protocol Docusate Sodium 100 mg 08/27/19 21:00 09/06/19 09:31 Colace Cap PO 100 mg Q12HR CARLOS Administration Furosemide 20 mg 08/24/19 09:00 09/06/19 09:31 Lasix Tablet PO 20 mg DAILY CARLOS Administration Gabapentin 300 mg 08/24/19 09:00 09/06/19 13:02 Neurontin PO 300 mg TID CARLOS Administration Glucagon 1 mg 08/23/19 21:20 Glucagon For Inj IM PRN PRN Hypoglycemia Protocol Glucose 15 gm 08/23/19 21:20 Glutose 15 PO PRN PRN Hypoglycemia Protocol Guaifenesin 200 mg 08/23/19 21:24 Guaifenesin Liq PO Q4H PRN Cough Dextrose 1,000 mls @ 100 mls/hr 08/23/19 21:20 Dextrose 5% 1,000 Ml IVPB PRN PRN Hypoglycem
[2019-09-06 17:17] LABS: Glucose Point of Care 58 (65-105)
--- NOTE | 2019-09-06 17:29 | PC.NURSE ---
called Dr. Worley regarding BS of 58-holding insulin 1700 dose of Aspart just for tonight.
[2019-09-06 17:59] LABS: Glucose Point of Care 127 (65-105)
[2019-09-06 20:09] VITALS: PULSE 74
[2019-09-06] MEDS: MELATONIN 3 MG TABLET 6 MG PO (20:09)
[2019-09-06 21:05] LABS: Glucose Point of Care 303 (65-105)
[2019-09-06 22:00] VITALS: BP 160/58; PULSE 79; RESP 18; TEMP 36.6; O2SAT 98
[2019-09-07 04:55] LABS: Basophils Percent Auto 0.6 % (0.2-1.2); Eosinophils Absolute Auto 0.2 K/mm3 (0-0.3); Eosinophils Percent Auto 2.8 % (0-4.4); Hematocrit 33.4 % (42.0-52.0); Hemoglobin 10.8 g/dL (14.0-18.0); Immature Granulocyte Absolute 0.01 K/mm3 (0.00-0.031); Immature Granulocyte Percent A 0.2 % (0-0.5); Lymphocytes Absolute Auto 0.62 K/mm3 (0.9-3.2); Lymphocytes Percent Auto 11.7 % (18.3-44.2); Mean Corpuscular HGB Conc 32.3 g/dl (32-36); Mean Corpuscular Hemoglobin 29.1 pg (26-34); Mean Platelet Volume 9.7 fl (7.4-10.4); Monocytes Absolute Auto 0.4 K/mm3 (0.1-0.6); Monocytes Percent Auto 6.6 % (2.6-8.5); Neutrophils Absolute Auto 4.1 K/mm3 (1.3-6.7); Neutrophils Percent Auto 78.1 % (45.5-73.1); Platelet Count Result 234 k/mm3 (150-375); Red Blood Count 3.71 M/mm3 (4.6-6.20); Red Cell Distribution Width 13.2 % (11.5-14.5); White Blood Count 5.3 K/mm3 (4.5-10.0)
[2019-09-07 05:07] LABS: Blood Urea Nitrogen 33 mg/dL (9-20); Calcium 8.9 mg/dL (8.4-10.2); Carbon Dioxide 26 mmol/L (22-30); Chloride 100 mmol/L (98-107); Estimated CRCL calculation 81 ml/min; Estimated Glomerular Filt Rate > 60; Glucose 334 mg/dL (75-110); Potassium 4.7 mmol/L (3.4-5.0); Sodium 135 mmol/L (137-145)
[2019-09-07 06:00] VITALS: BP 119/46; PULSE 72; RESP 18; TEMP 36.9; O2SAT 96
[2019-09-07 06:47] LABS: Glucose Point of Care 326 (65-105)
[2019-09-07] MEDS: INSULIN ASPART (*BKC) 100 UNITS/ML 10 UNITS SUB-Q ×3 (07:25→17:53)
[2019-09-07] MEDS: INSULIN ASPART (*BKC) 100 UNITS/ML SUB-Q (07:28)
[2019-09-07 08:00] VITALS: PULSE 72; RESP 18; O2SAT 96
[2019-09-07] MEDS: DOCUSATE SODIUM 100 MG CAPSULE PO ×2 (09:43→20:12)
[2019-09-07] MEDS: GABAPENTIN 300 MG CAPSULE PO (09:43)
[2019-09-07] MEDS: FUROSEMIDE 20 MG TABLET PO (09:43)
[2019-09-07] MEDS: THERAPEUTIC MULTIVITAMINS/MINERALS TAB (*BKC) 1 TABLET PO (09:43)
[2019-09-07 09:44] VITALS: PULSE 72
[2019-09-07] MEDS: ASPIRIN 81 MG CHEWABLE TABLET PO (09:44)
[2019-09-07] MEDS: MIDODRINE HCL 2.5 MG TABLET PO ×3 (09:44→17:46)
[2019-09-07] MEDS: METOPROLOL TARTRATE 12.5 MG TABLET PO ×2 (09:44→20:13)
[2019-09-07] MEDS: PRASUGREL HCL 10 MG TABLET PO (09:45)
[2019-09-07] MEDS: MUPIROCIN 2% OINT 22 GM TUBE 1 APPLIC TOPICAL ×2 (09:45→17:48)
[2019-09-07] MEDS: ATORVASTATIN 40 MG TABLET PO (09:45)
[2019-09-07] MEDS: LOSARTAN POTASSIUM 25 MG TABLET PO (09:45)
[2019-09-07] MEDS: INSULIN GLARGINE (*BKC) 100 UNITS/ML 14 UNITS SUB-Q ×2 (09:47→17:47)
--- NOTE | 2019-09-07 12:32 | WPDNEURORHBP ---
Subjective Date/time seen: 09/07/19 12:32 Interval history: patient is saying that day he was supposed to be taking 800 milligram of gabapentin 3 times a day for his neuropathy and he is only getting 300 milligram 3 times a day we will check his renal status and will increase to 8 and milligram 3 times a day overall patient is improving denies any headache chest pain shortness of breath and really walking fairly decently comparing to about a week ago Review of Systems Review of Systems: All systems reviewed & are unremarkable except as noted in HPI and below Functional Status Ambulation Ability Ability to Ambulate 10 Feet: Minimum Assistance X 1 Ability to Ambulate 50 Feet With 2 Turns: Minimum Assistance X 1 Ambulation Assistive Devices: Walker, Wheeled Transfers Ability Ability to Transfer In/Out of Chair: Moderate Assistance X 1 Exam Const: General: comfortable and no acute distress HENMT: General nose exam: Normal nares present Mouth: Yes moist mucous membranes Eyes: General: appearance normal, both eyes and all related structures Other: the evidence of diabetic retinopathy remains unchanged Neck: Neck: supple and no JVD Resp: Effort & Inspection: normal respiratory effort Auscultation: clear to auscultation bilaterally Cardio: Rate: regular rate Rhythm: regular rhythm GI: GI Palp: Yes Soft to palpation Auscultation: normal bowel sounds Skin: General skin exam: normal color and no rashes or lesions noted Neuro: Other: patient is almost paraplegic state has improved to a point that his walking with the assistance and the walker which is significant improvement however his paresthesias which are subjective have increased most likely related to decrease in his gabapentin which I am planning to go up on it Extrem: Other: the loss of muscle bulk in the left lower extremity in particular and also bilateral partial footdrop is present the foot drop has improved to opiate however since the finding in the left upper extremity or chronic I suspect and articular improve Objective Data Vital Signs Vital Signs: Vital Signs - 24 hr 09/06/19 14:00 09/06/19 20:09 09/06/19 22:00 Temperature 36.6 C 36.6 C Pulse Rate 74 74 79 Respiratory Rate 17 18 Blood Pressure 122/71 160/58 H Pulse Oximetry 97 98 09/07/19 06:00 09/07/19 09:44 Temperature 36.9 C Pulse Rate 72 72 Respiratory Rate 18 Blood Pressure 119/46 L Pulse Oximetry 96 Intake/Output Intake/Output: Intake & Output 09/04/19 09/05/19 09/06/19 09/07/19 23:59 23:59 23:59 23:59 Intake Total 1320 420 960 480 Balance 1320 420 960 480 Meds/Results Medications: Active Medications Generic Name Dose Route Start Last Admin Trade Name Freq PRN Reason Stop Dose Admin Aspirin 81 mg 08/24/19 09:00 09/07/19 09:44 Aspirin Chewable PO 81 mg DAILY CARLOS Administration Atorvastatin Calcium 40 mg 08/24/19 09:00 09/07/19 09:45 Lipitor PO 40 mg DAILY CARLOS Administration Bisacodyl 10 mg 08/23/19 21:24 08/24/19 21:38 Dulcolax Suppository RECTAL 10 mg DAILY PRN Administration Constipation Dextrose 12.5 gm 08/23/19 21:20 Dextrose 50% Syringe IV PUSH PRN PRN Hypoglycemia Protocol Docusate Sodium 100 mg 08/27/19 21:00 09/07/19 09:43 Colace Cap PO 100 mg Q12HR CARLOS Administration Furosemide 20 mg 08/24/19 09:00 09/07/19 09:43 Lasix Tablet PO 20 mg DAILY CARLOS Administration Gabapentin 800 mg 09/07/19 14:00 Neurontin PO Q8HR CARLOS Glucagon 1 mg 08/23/19 21:20 Glucagon For Inj IM PRN PRN Hypoglycemia Protocol Glucose 15 gm 08/23/19 21:20 Glutose 15 PO PRN PRN Hypoglycemia Protocol Guaifenesin 200 mg 08/23/19 21:24 Guaifenesin Liq PO Q4H PRN Cough Dextrose 1,000 mls @ 100 mls/hr 08/23/19 21:20 Dextrose 5% 1,000 Ml IVPB PRN PRN Hypoglycemia Protocol Insulin Aspart 3 - 6 units
[2019-09-07] MEDS: GABAPENTIN 400 MG CAPSULE 800 MG PO ×2 (12:39→20:13)
--- NOTE | 2019-09-07 12:49 | PCDIET ---
Nutrition Follow-Up Complete: Nutrition Diagnosis: Altered nutrition related labs related to diabetes mellitus as evidenced by glucose of 366. Nutrition Goals: Intakes >75%, improved glucose control (<200mg/dL) Intake goal met. Patient consuming 80-100% of meals on diabetic diet which is appropriate. Glucose goal not met. Last recorded weight is 89.3 kg. Recommend obtaining new weight. Bowel Motility: Last documented bowel movement on 09/03/19. Patient has order for Dulcolax prn. Labs Reviewed: Glu (366), Na (135) Meds Noted: Colace, Lasix, Novolog, Lantus, multivitamin with minerals. Additional Notes: Left lateral heel pressure ulcer, unopened; buttocks with friction shear area. Patient denies nutritional concerns or complaints at this time. Will continue to monitor with same goals. Nutrition Monitoring and Evaluation: Follow up in 7 days.
[2019-09-07 14:00] VITALS: BP 107/56; PULSE 77; RESP 19; TEMP 36.6; O2SAT 99
[2019-09-07 16:29] LABS: Glucose Point of Care 152 (65-105)
[2019-09-07 17:05] LABS: Glucose Point of Care 70 (65-105)
[2019-09-07 17:53] LABS: Glucose Point of Care 186 (65-105)
[2019-09-07] MEDS: MELATONIN 3 MG TABLET 6 MG PO (20:12)
[2019-09-07 20:13] VITALS: PULSE 78
[2019-09-07 21:42] LABS: Glucose Point of Care 94 (65-105)
[2019-09-07 22:00] VITALS: BP 140/54; PULSE 74; RESP 18; TEMP 36.8; O2SAT 98
[2019-09-08] MEDS: GABAPENTIN 400 MG CAPSULE 800 MG PO ×3 (05:42→21:10)
[2019-09-08 06:00] VITALS: BP 119/58; PULSE 68; RESP 16; TEMP 36.3; O2SAT 100
[2019-09-08] MEDS: INSULIN GLARGINE (*BKC) 100 UNITS/ML 14 UNITS SUB-Q ×2 (07:41→17:20)
[2019-09-08 08:00] VITALS: PULSE 68; RESP 16; O2SAT 100
[2019-09-08 08:16] LABS: Glucose Point of Care 98 (65-105)
[2019-09-08] MEDS: FUROSEMIDE 20 MG TABLET PO (09:52)
[2019-09-08] MEDS: ATORVASTATIN 40 MG TABLET PO (09:52)
[2019-09-08] MEDS: THERAPEUTIC MULTIVITAMINS/MINERALS TAB (*BKC) 1 TABLET PO (09:52)
[2019-09-08] MEDS: LOSARTAN POTASSIUM 25 MG TABLET PO (09:52)
[2019-09-08] MEDS: DOCUSATE SODIUM 100 MG CAPSULE PO ×2 (09:52→21:10)
[2019-09-08] MEDS: PRASUGREL HCL 10 MG TABLET PO (09:52)
[2019-09-08 09:53] VITALS: PULSE 68
[2019-09-08] MEDS: METOPROLOL TARTRATE 12.5 MG TABLET PO ×2 (09:53→21:10)
[2019-09-08] MEDS: MIDODRINE HCL 2.5 MG TABLET PO ×3 (09:53→21:10)
[2019-09-08] MEDS: MUPIROCIN 2% OINT 22 GM TUBE 1 APPLIC TOPICAL ×2 (09:56→17:22)
[2019-09-08 12:07] LABS: Glucose Point of Care 363 (65-105)
[2019-09-08] MEDS: INSULIN ASPART (*BKC) 100 UNITS/ML 10 UNITS SUB-Q ×2 (12:26→17:20)
[2019-09-08] MEDS: INSULIN ASPART (*BKC) 100 UNITS/ML SUB-Q ×2 (12:28→17:20)
--- NOTE | 2019-09-08 13:45 | WPDNEURORHBP ---
Subjective Date/time seen: 09/08/19 13:45 Interval history: patient is here after having had the surgery performed on his lower back but he is a brittle type 1 diabetic and his blood sugar fluctuates however he knows when to take his insulin and not to overall his neurological status particularly referring to lower extremities has improved significantly from the point E has come to us He denies any fever chills sore throat chest pain or shortness Review of Systems Review of Systems: All systems reviewed & are unremarkable except as noted in HPI and below Functional Status Ambulation Ability Ability to Ambulate 10 Feet: Standby Assistance Ability to Ambulate 50 Feet With 2 Turns: Standby Assistance Ambulation Assistive Devices: Walker, Wheeled Transfers Ability Ability to Transfer In/Out of Chair: Standby Assistance Exam Const: General: comfortable and no acute distress HENMT: General nose exam: Normal nares present Mouth: Yes moist mucous membranes Eyes: General: appearance normal, both eyes and all related structures Other: evidence of diabetic retinopathy remains the same Neck: Neck: supple and no JVD Resp: Effort & Inspection: normal respiratory effort Auscultation: clear to auscultation bilaterally Cardio: Rate: regular rate Rhythm: regular rhythm GI: GI Palp: Yes Soft to palpation Auscultation: normal bowel sounds Skin: General skin exam: normal color and no rashes or lesions noted Neuro: Other: improving neurological status by the fact that his paraparesis which was almost plegic when he came to us has significantly improved he does have evidence of significant peripheral neuropathy along with the deficit which has predated with his back issues and post surgery Extrem: Other: the examination of the extremities remains stable Objective Data Vital Signs Vital Signs: Vital Signs - 24 hr 09/07/19 14:00 09/07/19 20:13 09/07/19 22:00 Temperature 36.6 C 36.8 C Pulse Rate 77 78 74 Respiratory Rate 19 18 Blood Pressure 107/56 L 140/54 L Pulse Oximetry 99 98 09/08/19 06:00 09/08/19 08:00 09/08/19 09:53 Temperature 36.3 C L Pulse Rate 68 68 68 Respiratory Rate 16 16 Blood Pressure 119/58 L Pulse Oximetry 100 100 Intake/Output Intake/Output: Intake & Output 09/05/19 09/06/19 09/07/19 09/08/19 23:59 23:59 23:59 23:59 Intake Total 312 937 6323 480 Balance 104 051 9956 480 Meds/Results Medications: Active Medications Generic Name Dose Route Start Last Admin Trade Name Freq PRN Reason Stop Dose Admin Aspirin 81 mg 08/24/19 09:00 09/07/19 09:44 Aspirin Chewable PO 81 mg DAILY CARLOS Administration Atorvastatin Calcium 40 mg 08/24/19 09:00 09/08/19 09:52 Lipitor PO 40 mg DAILY CARLOS Administration Bisacodyl 10 mg 08/23/19 21:24 08/24/19 21:38 Dulcolax Suppository RECTAL 10 mg DAILY PRN Administration Constipation Dextrose 12.5 gm 08/23/19 21:20 Dextrose 50% Syringe IV PUSH PRN PRN Hypoglycemia Protocol Docusate Sodium 100 mg 08/27/19 21:00 09/08/19 09:52 Colace Cap PO 100 mg Q12HR CARLOS Administration Furosemide 20 mg 08/24/19 09:00 09/08/19 09:52 Lasix Tablet PO 20 mg DAILY CARLOS Administration Gabapentin 800 mg 09/07/19 14:00 09/08/19 05:42 Neurontin PO 800 mg Q8HR CARLOS Administration Glucagon 1 mg 08/23/19 21:20 Glucagon For Inj IM PRN PRN Hypoglycemia Protocol Glucose 15 gm 08/23/19 21:20 Glutose 15 PO PRN PRN Hypoglycemia Protocol Guaifenesin 200 mg 08/23/19 21:24 Guaifenesin Liq PO Q4H PRN Cough Dextrose 1,000 mls @ 100 mls/hr 08/23/19 21:20 Dextrose 5% 1,000 Ml IVPB PRN PRN Hypoglycemia Protocol Insulin Aspart 3 - 6 units 08/24/19 08:00 09/08/19 12:28 Novolog SUB-Q 6 units TIDWM CARLOS Administration Protocol Insulin Aspart 10 units 08/24/19 08:00 09/08/19 12:26 Novolog
[2019-09-08 14:00] VITALS: BP 164/59; PULSE 84; RESP 17; TEMP 36.8; O2SAT 98
[2019-09-08] MEDS: ASPIRIN 81 MG CHEWABLE TABLET PO (14:10)
[2019-09-08 17:07] LABS: Glucose Point of Care 232 (65-105)
[2019-09-08 21:10] VITALS: PULSE 78
[2019-09-08] MEDS: MELATONIN 3 MG TABLET 6 MG PO (21:10)
[2019-09-08 21:44] LABS: Glucose Point of Care 246 (65-105)
[2019-09-08 22:00] VITALS: BP 133/52; PULSE 77; RESP 18; TEMP 36.8; O2SAT 97
[2019-09-09 06:00] VITALS: BP 132/54; PULSE 78; RESP 18; TEMP 36.4; O2SAT 96
[2019-09-09 06:41] LABS: Glucose Point of Care 314 (65-105)
[2019-09-09] MEDS: GABAPENTIN 400 MG CAPSULE 800 MG PO ×3 (06:42→20:28)
[2019-09-09] MEDS: INSULIN ASPART (*BKC) 100 UNITS/ML 10 UNITS SUB-Q ×3 (08:29→18:17)
[2019-09-09] MEDS: INSULIN ASPART (*BKC) 100 UNITS/ML SUB-Q (08:30)
[2019-09-09] MEDS: ASPIRIN 81 MG CHEWABLE TABLET PO (08:31)
[2019-09-09] MEDS: LOSARTAN POTASSIUM 25 MG TABLET PO (08:32)
[2019-09-09] MEDS: FUROSEMIDE 20 MG TABLET PO (08:32)
[2019-09-09] MEDS: DOCUSATE SODIUM 100 MG CAPSULE PO ×2 (08:32→20:28)
[2019-09-09] MEDS: ATORVASTATIN 40 MG TABLET PO (08:32)
[2019-09-09] MEDS: INSULIN GLARGINE (*BKC) 100 UNITS/ML 14 UNITS SUB-Q ×2 (08:33→18:18)
[2019-09-09] MEDS: MIDODRINE HCL 2.5 MG TABLET PO ×3 (08:33→18:19)
[2019-09-09] MEDS: PRASUGREL HCL 10 MG TABLET PO (08:34)
[2019-09-09] MEDS: THERAPEUTIC MULTIVITAMINS/MINERALS TAB (*BKC) 1 TABLET PO (08:34)
[2019-09-09] MEDS: MUPIROCIN 2% OINT 22 GM TUBE 1 APPLIC TOPICAL ×2 (08:34→18:19)
[2019-09-09 08:40] VITALS: PULSE 78
[2019-09-09] MEDS: METOPROLOL TARTRATE 12.5 MG TABLET PO ×2 (08:40→20:28)
[2019-09-09 12:18] LABS: Glucose Point of Care 131 (65-105)
[2019-09-09 14:00] VITALS: BP 115/45; PULSE 76; RESP 18; TEMP 36.2; O2SAT 98
[2019-09-09 17:36] LABS: Glucose Point of Care 121 (65-105)
[2019-09-09 20:28] VITALS: PULSE 80
[2019-09-09] MEDS: MELATONIN 3 MG TABLET 6 MG PO (20:28)
[2019-09-09] MEDS: GUAIFENESIN 200 MG/10 ML UDC PO (20:29)
[2019-09-09 21:54] LABS: Glucose Point of Care 187 (65-105)
[2019-09-09 22:00] VITALS: BP 171/65; PULSE 77; RESP 18; TEMP 36.9; O2SAT 99
[2019-09-10] MEDS: GABAPENTIN 400 MG CAPSULE 800 MG PO ×3 (05:56→19:58)
[2019-09-10 06:00] VITALS: BP 122/53; PULSE 65; RESP 19; TEMP 36.4; O2SAT 97
[2019-09-10 07:04] LABS: Glucose Point of Care 179 (65-105)
[2019-09-10] MEDS: DOCUSATE SODIUM 100 MG CAPSULE PO ×2 (08:59→19:59)
[2019-09-10] MEDS: ASPIRIN 81 MG CHEWABLE TABLET PO (08:59)
[2019-09-10] MEDS: ATORVASTATIN 40 MG TABLET PO (08:59)
[2019-09-10 09:00] VITALS: PULSE 65
[2019-09-10] MEDS: LOSARTAN POTASSIUM 25 MG TABLET PO (09:00)
[2019-09-10] MEDS: METOPROLOL TARTRATE 12.5 MG TABLET PO ×2 (09:00→19:58)
[2019-09-10] MEDS: MIDODRINE HCL 2.5 MG TABLET PO ×3 (09:00→18:23)
[2019-09-10] MEDS: FUROSEMIDE 20 MG TABLET PO (09:00)
[2019-09-10] MEDS: INSULIN GLARGINE (*BKC) 100 UNITS/ML 14 UNITS SUB-Q ×2 (09:01→18:22)
[2019-09-10] MEDS: MUPIROCIN 2% OINT 22 GM TUBE 1 APPLIC TOPICAL ×2 (09:01→18:23)
[2019-09-10] MEDS: INSULIN ASPART (*BKC) 100 UNITS/ML 10 UNITS SUB-Q ×3 (09:02→18:18)
[2019-09-10] MEDS: PRASUGREL HCL 10 MG TABLET PO (09:04)
[2019-09-10] MEDS: THERAPEUTIC MULTIVITAMINS/MINERALS TAB (*BKC) 1 TABLET PO (09:04)
[2019-09-10 12:17] LABS: Glucose Point of Care 386 (65-105)
[2019-09-10] MEDS: INSULIN ASPART (*BKC) 100 UNITS/ML SUB-Q ×2 (12:20→18:19)
[2019-09-10 14:00] VITALS: BP 124/56; PULSE 77; RESP 18; TEMP 36.9; O2SAT 95
--- NOTE | 2019-09-10 14:38 | WPDNEURORHBP ---
Subjective Date/time seen: 09/10/19 14:38 Interval history: this 59-year-old gentleman is here after having had surgery for spondylolisthesis it was anterior and posterior spinal fusion He is a brittle diabetic type 1 and his blood sugar does fluctuate quite a bit next Otherwise denies any headache chest pain shortness of breath overall neurological status is improving Review of Systems Constitutional: Constitutional: Reports no additional constitutional complaints Eyes: Eyes: Reports no additional eye complaints ENT: Reports system reviewed and no additional complaints, except as documented Cardiovascular: Cardiovascular: Reports no additional cardiovascular complaints Respiratory: Respiratory: Reports no additional respiratory complaints Gastrointestinal: Gastrointestinal: Reports no additional gastrointestinal complaints Musculoskeletal: Musculoskeletal: Reports no additional musculoskeletal complaints Integumentary/Breasts: Skin/Breast: Reports system reviewed and no additional complaints, except as docu Neurologic: Reports system reviewed and no additional complaints, except as documented Psychiatric: Psychiatric: Reports no additional psychiatric complaints Functional Status Ambulation Ability Ability to Ambulate 10 Feet: Standby Assistance Ability to Ambulate 50 Feet With 2 Turns: Contact Guard Ambulation Assistive Devices: Walker, Wheeled Transfers Ability Ability to Transfer In/Out of Chair: Standby Assistance Exam Const: General: comfortable and no acute distress HENMT: General nose exam: Normal nares present Mouth: Yes moist mucous membranes Eyes: General: appearance normal, both eyes and all related structures Neck: Neck: supple and no JVD Resp: Effort & Inspection: normal respiratory effort Auscultation: clear to auscultation bilaterally Cardio: Rate: regular rate Rhythm: regular rhythm GI: GI Palp: Yes Soft to palpation Auscultation: normal bowel sounds Skin: General skin exam: normal color and no rashes or lesions noted Neuro: Other: patient's mental status is normal, cranial exam shows normal except the evidence of diabetic retinopathy he does have evidence of significant peripheral neuropathy depressed reflexes and sensory deficit lower extremities much more so than the upper extremities Extrem: Other: as it has been documented in the previous notes Psych: Mental Status: mental status grossly normal Objective Data Vital Signs Vital Signs: Vital Signs - 24 hr 09/09/19 20:28 09/09/19 22:00 09/10/19 06:00 Temperature 36.9 C 36.4 C L Pulse Rate 80 77 65 Respiratory Rate 18 19 Blood Pressure 171/65 H 122/53 L Pulse Oximetry 99 97 09/10/19 09:00 Temperature Pulse Rate 65 Respiratory Rate Blood Pressure Pulse Oximetry Intake/Output Intake/Output: Intake & Output 09/07/19 09/08/19 09/09/19 09/10/19 23:59 23:59 23:59 23:59 Intake Total 1440 1440 760 840 Balance 1440 1440 760 840 Meds/Results Medications: Active Medications Generic Name Dose Route Start Last Admin Trade Name Freq PRN Reason Stop Dose Admin Aspirin 81 mg 08/24/19 09:00 09/10/19 08:59 Aspirin Chewable PO 81 mg DAILY CARLOS Administration Atorvastatin Calcium 40 mg 08/24/19 09:00 09/10/19 08:59 Lipitor PO 40 mg DAILY CARLOS Administration Bisacodyl 10 mg 08/23/19 21:24 08/24/19 21:38 Dulcolax Suppository RECTAL 10 mg DAILY PRN Administration Constipation Dextrose 12.5 gm 08/23/19 21:20 Dextrose 50% Syringe IV PUSH PRN PRN Hypoglycemia Protocol Docusate Sodium 100 mg 08/27/19 21:00 09/10/19 08:59 Colace Cap PO 100 mg Q12HR CARLOS Administration Furosemide 20 mg 08/24/19 09:00 09/10/19 09:00 Lasix Tablet PO 20 mg DAILY CARLOS Administration Gabapentin 800 mg 09/07/19 14:00 09/10/19 05:56 Neurontin PO 800 mg Q8HR CARLOS Administration Glucagon 1 mg 08/23/19 21:20 Glucagon For Inj IM PRN
[2019-09-10 17:26] LABS: Glucose Point of Care 374 (65-105)
[2019-09-10 19:58] VITALS: PULSE 80
[2019-09-10] MEDS: MELATONIN 3 MG TABLET 6 MG PO (19:58)
[2019-09-10 20:43] LABS: Glucose Point of Care 267 (65-105)
[2019-09-10 22:00] VITALS: BP 142/67; PULSE 77; RESP 18; TEMP 36.8; O2SAT 96
[2019-09-11 06:00] VITALS: BP 128/60; PULSE 62; RESP 18; TEMP 36.7; O2SAT 99
[2019-09-11] MEDS: GABAPENTIN 400 MG CAPSULE 800 MG PO ×3 (06:04→23:02)
[2019-09-11 06:11] LABS: Glucose Point of Care 175 (65-105)
[2019-09-11] MEDS: INSULIN ASPART (*BKC) 100 UNITS/ML 10 UNITS SUB-Q ×3 (07:47→17:09)
[2019-09-11] MEDS: INSULIN GLARGINE (*BKC) 100 UNITS/ML 14 UNITS SUB-Q ×2 (07:58→17:03)
[2019-09-11] MEDS: METOPROLOL TARTRATE 12.5 MG TABLET PO ×2 (07:59→20:26)
[2019-09-11] MEDS: ATORVASTATIN 40 MG TABLET PO (07:59)
[2019-09-11] MEDS: ASPIRIN 81 MG CHEWABLE TABLET PO (07:59)
[2019-09-11] MEDS: THERAPEUTIC MULTIVITAMINS/MINERALS TAB (*BKC) 1 TABLET PO (08:00)
[2019-09-11] MEDS: FUROSEMIDE 20 MG TABLET PO (08:00)
[2019-09-11] MEDS: LOSARTAN POTASSIUM 25 MG TABLET PO (08:00)
[2019-09-11] MEDS: MIDODRINE HCL 2.5 MG TABLET PO ×3 (08:00→17:45)
[2019-09-11] MEDS: PRASUGREL HCL 10 MG TABLET PO (08:00)
[2019-09-11] MEDS: DOCUSATE SODIUM 100 MG CAPSULE PO ×2 (08:00→20:32)
[2019-09-11] MEDS: MUPIROCIN 2% OINT 22 GM TUBE 1 APPLIC TOPICAL ×2 (08:25→17:45)
[2019-09-11 11:50] LABS: Glucose Point of Care 129 (65-105)
[2019-09-11 14:00] VITALS: BP 128/76; PULSE 84; RESP 18; TEMP 36.6; O2SAT 96
[2019-09-11 16:50] LABS: Glucose Point of Care 133 (65-105)
[2019-09-11 20:26] VITALS: PULSE 80
[2019-09-11] MEDS: MELATONIN 3 MG TABLET 6 MG PO (20:30)
[2019-09-11 21:04] LABS: Glucose Point of Care 84 (65-105)
[2019-09-11 22:00] VITALS: BP 149/64; PULSE 68; RESP 20; TEMP 36.6; O2SAT 97
[2019-09-11 23:21] LABS: Glucose Point of Care 53 (65-105)
[2019-09-12 03:47] LABS: Glucose Point of Care 99 (65-105)
[2019-09-12] MEDS: GABAPENTIN 400 MG CAPSULE 800 MG PO (05:41)
[2019-09-12 06:00] VITALS: BP 132/66; PULSE 76; RESP 20; TEMP 36.2; O2SAT 96
[2019-09-12 06:54] LABS: Glucose Point of Care 133 (65-105)
[2019-09-12] MEDS: INSULIN ASPART (*BKC) 100 UNITS/ML 10 UNITS SUB-Q (09:19)
[2019-09-12] MEDS: ASPIRIN 81 MG CHEWABLE TABLET PO (09:20)
[2019-09-12] MEDS: INSULIN GLARGINE (*BKC) 100 UNITS/ML 14 UNITS SUB-Q (09:21)
[2019-09-12] MEDS: DOCUSATE SODIUM 100 MG CAPSULE PO (09:21)
[2019-09-12] MEDS: FUROSEMIDE 20 MG TABLET PO (09:21)
[2019-09-12] MEDS: ATORVASTATIN 40 MG TABLET PO (09:21)
[2019-09-12 09:23] VITALS: PULSE 76
[2019-09-12] MEDS: LOSARTAN POTASSIUM 25 MG TABLET PO (09:23)
[2019-09-12] MEDS: METOPROLOL TARTRATE 12.5 MG TABLET PO (09:23)
[2019-09-12] MEDS: MIDODRINE HCL 2.5 MG TABLET PO (09:23)
[2019-09-12] MEDS: MUPIROCIN 2% OINT 22 GM TUBE 1 APPLIC TOPICAL (09:24)
[2019-09-12] MEDS: PRASUGREL HCL 10 MG TABLET PO (09:24)
[2019-09-12] MEDS: THERAPEUTIC MULTIVITAMINS/MINERALS TAB (*BKC) 1 TABLET PO (09:24)
--- NOTE | 2019-09-12 11:25 | WPDNEURORHBP ---
Subjective Date/time seen: 09/12/19 11:25 Interval history: patient has done remarkably well in the acute rehab program and is ready to be discharged his no complaints particularly denies any headache chest pain shortness of breath will low sugars he has most of the medications at home and he will need only couple of medications which have been added here 1 of them is midodrine and the other he came with his atorvastatin Review of Systems Review of Systems: All systems reviewed & are unremarkable except as noted in HPI and below Functional Status Ambulation Ability Ability to Ambulate 10 Feet: Standby Assistance Ability to Ambulate 50 Feet With 2 Turns: Standby Assistance Ambulation Assistive Devices: Walker, Wheeled Transfers Ability Ability to Transfer In/Out of Chair: Standby Assistance Exam Const: General: comfortable and no acute distress HENMT: General nose exam: Normal nares present Mouth: Yes moist mucous membranes Eyes: General: appearance normal, both eyes and all related structures Other: Diederich diabetic retinopathy commands stable Neck: Neck: supple and no JVD Resp: Effort & Inspection: normal respiratory effort Auscultation: clear to auscultation bilaterally Cardio: Rate: regular rate Rhythm: regular rhythm GI: GI Palp: Yes Soft to palpation Auscultation: normal bowel sounds Skin: General skin exam: normal color and no rashes or lesions noted Neuro: Other: patient has significantly improvement in his lower extremity muscles trend is walking quite a bit the reflexes remain the same the sensory deficit remain the same and he evidence of the neuropathy affecting upper extremities and lower extremities is roughly about the same but overall the strength has definitely improved and his mental status is normal Extrem: Other: deformity due to small muscles resting in the left hand more so than the right hand is roughly about the same likewise the same applies to feet however his partial footdrop has improved and is walking much better Psych: Mental Status: mental status grossly normal Objective Data Vital Signs Vital Signs: Vital Signs - 24 hr 09/11/19 14:00 09/11/19 20:26 09/11/19 22:00 Temperature 36.6 C 36.6 C Pulse Rate 84 80 68 Respiratory Rate 18 20 Blood Pressure 128/76 149/64 H Pulse Oximetry 96 97 09/12/19 06:00 09/12/19 09:23 Temperature 36.2 C L Pulse Rate 76 76 Respiratory Rate 20 Blood Pressure 132/66 Pulse Oximetry 96 Intake/Output Intake/Output: Intake & Output 01/25/20 01/26/20 01/27/20 01/28/20 23:59 23:59 23:59 23:59 Intake Total 760 1320 480 240 Balance 760 1320 480 240 Meds/Results Medications: Active Medications Generic Name Dose Route Start Last Admin Trade Name Freq PRN Reason Stop Dose Admin Aspirin 81 mg 08/24/19 09:00 09/12/19 09:20 Aspirin Chewable PO 81 mg DAILY CARLOS Administration Atorvastatin Calcium 40 mg 08/24/19 09:00 09/12/19 09:21 Lipitor PO 40 mg DAILY CARLOS Administration Bisacodyl 10 mg 08/23/19 21:24 08/24/19 21:38 Dulcolax Suppository RECTAL 10 mg DAILY PRN Administration Constipation Dextrose 12.5 gm 08/23/19 21:20 Dextrose 50% Syringe IV PUSH PRN PRN Hypoglycemia Protocol Docusate Sodium 100 mg 08/27/19 21:00 09/12/19 09:21 Colace Cap PO 100 mg Q12HR CARLOS Administration Furosemide 20 mg 08/24/19 09:00 09/12/19 09:21 Lasix Tablet PO 20 mg DAILY CARLOS Administration Gabapentin 800 mg 09/07/19 14:00 09/12/19 05:41 Neurontin PO 800 mg Q8HR CARLOS Administration Glucagon 1 mg 08/23/19 21:20 Glucagon For Inj IM PRN PRN Hypoglycemia Protocol Glucose 15 gm 08/23/19 21:20 Glutose 15 PO PRN PRN Hypoglycemia Protocol Guaifenesin 200 mg 08/23/19 21:24 09/09/19 20:29 Guaifenesin Liq PO 200 mg Q4H PRN Administration Cough Dextrose 1,000 mls @ 100 mls/hr 08/23/19 21:20 Dextr
[2019-09-12 12:19] LABS: Glucose Point of Care 79 (65-105)
--- NOTE | 2019-09-16 16:13 | DS_ITS ---
DATE OF DISCHARGE: 09/12/2019 DISCHARGE ACUTE REHAB DIAGNOSIS: Primary rehab impairment category of neurological condition with etiological diagnosis of spondylolisthesis of lumbar spine. 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 REASON FOR ADMISSION: A 59 years old right-handed male with medical history of: 1. Diabetes mellitus with neuropathy. 2. L5-S1 spondylolisthesis with lumbar radiculopathy, presented to [facility] on 07/18/2019 for planned spinal fusion with instrumentation. He underwent phase 1 retroperitoneal anterior lumbar interbody fusion at L4-5 and L5-S1 with diskectomy and spinal hardware implantation, on 07/20/2019 underwent phase 2 segmental pedicle screw fixation from L4-S1 and posterior arthrodesis with the patient's own harvested autograft from L4 through S1, transferred to ICU on 07/21/2019, for increased oxygen requirement up to 5 L per nasal cannula in addition to the hyperglycemia and anemia secondary to blood loss and pulmonary edema. Received 2 units of packed RBCs for hemoglobin of 6.4, oxygen by BiPAP and endocrinology consultation for hyperglycemia, ending up with an insulin pump, but not enough supplies to last during his hospitalization, though his pump was turned off and switched him to basal bolus and changed his regimen to Humalog sliding scale before meals and every night. Cardiology were consulted for postop elevation of troponin. The echocardiogram was concerning for apical wall motion abnormalities with possible stress cardiomyopathy. Received 40 mg IV Lasix b.i.d. for pulmonary edema and volume overload and metoprolol 25 mg b.i.d. He was started on heparin drip by the explosives operator, though initially it was not approved by the neurosurgical service because of recent surgery, started on 07/22. On 07/31, he was diagnosed with [id number] GA, acute diastolic heart failure with preserved ejection fraction. 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 Left heart catheterization documented multivessel disease, transferred to Cardiology for further management. He underwent PCI on August 07, 2019. He was documented to have hypokinesis of septal and apical thomas with ejection fraction of only 55% to 60%. Placed on aspirin and Plavix and atorvastatin. Modified barium swallow on 08/08. NG tube was removed on 08/15, PEG placed on 08/15, tube feeding started 08/16/2019. Acute injury kidney injury, resolved. Hyponatremia, resolved. Hemoglobin was stable at 10.9. He is awake, alert, oriented x4 on room air. Discharged to rehab on NovoLog 30 subcu for DVT prophylaxis. However, he was not discharged from [facility] on Lovenox and he was placed on SCD and DIANA hose for DVT prophylaxis. LEVEL OF FUNCTION AT THE TIME OF ADMISSION: The patient required supervision for eating and oral hygiene. He was dependent for toileting; required substantial assistance for bathing, upper body dressing, supervision for lower body dressing. He was dependent for footwear, partial assistance for rolling in bed, sit to lying, lying to sitting. He was dependent for sit to stand, chair transfer, and he was unable for all other modalities. Anticipated rehab goals were to make him set up only for eating and oral hygiene, supervision for toileting, lower body dressing, footwear, partial assistance for bathing and upper body dressing, and make him independent in rolling, sitting, lying to sitting, sit to stand, chair transfer, toilet transfer, car transfer, walking up to 150 feet, walking 10 feet on uneven surfaces and may require only supervision f
== END 2019-09-12 12:30 | disposition home health service (06) | DRG 559 ==
PROVIDERS: Admitting Provider Psychiatry & Neurology Neurology; PCP Internal Medicine; Visit Provider Psychiatry & Neurology Neurology
DX: Z47.89 Encounter for other orthopedic aftercare (principal); I50.31 Acute diastolic (congestive) heart failure; D62 Acute posthemorrhagic anemia; M43.17 Spondylolisthesis, lumbosacral region; I25.2 Old myocardial infarction; M54.17 Radiculopathy, lumbosacral region; E10.42 Type 1 diabetes mellitus with diabetic polyneuropathy; E10.69 Type 1 diabetes mellitus with other specified complication; E10.43 Type 1 diabetes mellitus with diabetic autonomic (poly)neuropathy; E10.65 Type 1 diabetes mellitus with hyperglycemia; E10.319 Type 1 diabetes mellitus with unspecified diabetic retinopathy without macular edema; E78.2 Mixed hyperlipidemia; G09 Sequelae of inflammatory diseases of central nervous system; I95.1 Orthostatic hypotension; K59.00 Constipation, unspecified; M62.541 Muscle wasting and atrophy, not elsewhere classified, right hand; M21.372 Foot drop, left foot; M21.371 Foot drop, right foot; R53.1 Weakness; Z93.1 Gastrostomy status; Z79.4 Long term (current) use of insulin; Z98.1 Arthrodesis status
CPT/HCPCS: 36415; 80048; 83036; 85025; 87081; 92610; 97110; 97116; 97150; 97162; 97166; 97530; 97535; 97542; A9270; J1815

== ENCOUNTER 2019-12-28 11:40 | Outpatient (CLI) | payer MEDICARE, SELFPAY ==
--- NOTE | ~2019-12-28 | XR_ITS ---
XR lumbar spine 2-3V DATE: 12/28/2019 12:17 INDICATION: Spondylolisthesis, lumbar area TECHNIQUE: AP, lateral, coned lateral lumbosacral views COMPARISON: None FINDINGS: There is anterior and posterior surgical spinal fusion at L4-S1. No fracture or dislocation or spondylolisthesis is evident. The visualized lower thoracic and lumbar pedicles are intact. The sacroiliac joints are normally aligned. Iliac arterial calcifications. Calcification overlying the lower pole left kidney suggests a staghorn calcified calculus. IMPRESSION: Status post anterior and posterior spinal fusion at L4-S1 Reviewed, dictated and finalized at location A.
== END 2019-12-28 11:41 | disposition home or self-care (01) ==
PROVIDERS: PCP Internal Medicine
DX: M43.16 Spondylolisthesis, lumbar region (principal); Z98.1 Arthrodesis status
CPT/HCPCS: 72100

== ENCOUNTER 2023-04-27 06:46 | Outpatient (CLI) | payer MEDICARE, SELFPAY ==
--- NOTE | ~2023-04-27 | MR_ITS ---
MRI of the right foot CLINICAL HISTORY: Osteomyelitis TECHNIQUE: Sagittal T1-weighted and STIR images, axial T1-weighted, T2 fat-sat, and T1 fat-sat images , and coronal T1-weighted and T2 fat-sat images were acquired. FINDINGS: Patient is status post prior amputation of the phalanges of the great toe. There is an ulce r at the medial foot at the level of the first metatarsal head, extensive marrow edema in the distal aspect of the first metatarsal. T1 marrow signal is relatively well preserved, but there are focal ar eas of possible cortical destruction/erosion, which is suspicious for very early osteomyelitis at the first metatarsal head region. Remaining osseous structures in the forefoot demonstrate normal marrow signal. Remaining joint spaces are essentially unremarkable. Flexor and extensor tendons of the second through fifth digits are intact. There is mild nonspecific edematous change of the plantar musculature of the foot. There is mild dorsal subcutaneous soft tissu e edema. No abscess evident. IMPRESSION: Findings suspicious for very early osteomyelitis of the first metatarsal head, as detailed above. Ove rlying ulcer present at the level of the first metatarsal head medially. 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 Reviewed, dictated and finalized at [facility]. IMPRESSION: Findings suspicious for very early osteomyelitis of the first metatarsal head, as detailed above. Overlying ulcer present at the level of the first metatarsal head medially. 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
== END 2023-04-27 06:47 | disposition home or self-care (01) ==
PROVIDERS: PCP Internal Medicine; Visit Provider Nurse Practitioner Family
DX: L97.518 Non-pressure chronic ulcer of other part of right foot with other specified severity (principal)
CPT/HCPCS: 73718